=== PATIENT | female | born 1945 | race Caucasian/White ===

== ENCOUNTER → 2021-09-30 14:33 | Outpatient (BNVA) | payer OTHER, SELFPAY | PROVIDERS: PCP Nurse Practitioner; Visit Provider Nurse Practitioner Family ==

== ENCOUNTER → 2021-11-27 13:59 | Outpatient (BNVA) | payer OTHER, SELFPAY | PROVIDERS: PCP Nurse Practitioner; Visit Provider Nurse Practitioner Family ==

== ENCOUNTER → 2022-09-27 15:29 | Outpatient (BNVA) | payer OTHER, SELFPAY | PROVIDERS: PCP Nurse Practitioner; Visit Provider Nurse Practitioner Family | DX: Z13.89 Encounter for screening for other disorder (principal) ==

== ENCOUNTER → 2022-12-27 14:58 | Outpatient (BNVA) | payer OTHER, SELFPAY | PROVIDERS: PCP Nurse Practitioner; Visit Provider Nurse Practitioner Family | DX: Z13.89 Encounter for screening for other disorder (principal) ==

== ENCOUNTER 2023-03-31 12:59 | Outpatient (AMB) | payer OTHER, SELFPAY ==
--- NOTE | 2023-03-31 13:03 | A.OFFVIS_ITS ---
Intake Vital Signs 03/31/23 13:04 Height 5 ft 5 in Weight 141 lb BMI 23.5 BP 108/80 Blood Pressure Location Lt brachial Position Sitting Pulse 63 Pulse Source Pulse Oximeter Pulse Oximetry (%) 96 Oxygen Delivery Method Room Air Intake Visit Reasons: 3m follow up - LVM Intake Note: Pt presents as a 3 month f/u. Pt states doing alright, I broke my hip and had surgery in December. Blood And Plasma Laboratory Assistant Required: No Allergies No Known Allergies Allergy (Verified 03/31/23 13:09) Medication List - Last Reconciled 03/31/23 by KATE Hawkins cholecalciferol (vitamin D3) 25 mcg PO DAILY docusate sodium 100 mg PO BID PRN duloxetine 30 mg PO DAILY flu vacc [id number](65yr up)-PF (Fluzone High-Dose Quad (PF)) mL IM gabapentin 300 mg orally 1 cap qam & 2 caps qhs; in the Morning gabapentin 300 mg PO BID levothyroxine 25 mcg PO DAILY magnesium oxide 400 mg PO BEDTIME 30 days mirtazapine 15 mg PO BEDTIME multivitamin 1 tab PO DAILY ropinirole 0.25 mg PO BID 30 days sennosides (senna) 8.6 mg PO DAILY PRN HPI HPI Comments History of Present Illness Details 77-yr-old female presents for f/u visit. Pt endorses the following interval medical history changes: Pt reports that she had a fall in December and sustained a left hip fracture- now s/p ORIF. She had a rehab stay and then returned home to her dtr's house. She was just cleared by ortho to resume driving and has just returned to her own home about a week ago. While she was at her dtr's house, she did have a [facility] admission x's 1 wk- for management of her depression and ? SI- but pt denies that was ever really had SI. She now has a psychiatrist. Is feeling a bit depressed since returning home- denies SI. Her dtr is trying to help her establish care w/ a therapist. She states her tremor is stable w/ Requip 0.25mg bid. She states her numbness and tingling in her feet and fingers- is stable. She is now walking with a walker- states that she is supposed to use it until ortho fully clears her. She has been noticing a bit more right hip discomfort- ? d/t overuse r/t the left hip fx. Had right hip XR- per pt, showed a small bone spur- was advsied to use lidocaine patch- but this is hard to do on her own. PFSH Surgical History Status post hip surgery Family History Father Alzheimers disease Mother Breast cancer Social History (Updated 03/31/23 @ 13:17 by Brenda Hoffman CMA) Alcohol intake: never Patient Tobacco Use Status: Never used Tobacco Review of Systems Const All systems reviewed & are unremarkable except as noted in HPI and below Physical Exam Vital Signs: Last Vital Signs Pulse 63 03/31/23 13:04 BP 108/80 03/31/23 13:04 Pulse Ox 96 03/31/23 13:04 Oxygen Delivery Method Room Air 03/31/23 13:04 BMI result Body Mass Index 23.5 Const General: cooperative and no acute distress Orientation/consciousness: patient oriented x3 HEENT Head: Yes normocephalic Resp Effort & Inspection: normal respiratory effort and able to speak in complete sentences Neuro Other: Decreased expression but w/ increased blink- a bit more so on left. Left mild finger rest tremor. BUE postural tremor L > R. Mild R > L tone. Slow to stand, short steps, steady with walker General: patient oriented x3 Cognition (Neuro): normal cognition Motor exam (neuro): 5/5 motor strength present throughout Psych Appearance: grossly normal Mental Status: mental status grossly normal Speech and movement: Clear speech present Affect: normal affect Attitude: cooperative Assessment & Plan Assessment & Plan (1) Tremor, unspecified: Comment: w/ s/s PD- but negative MERCED scan. Code(s): R25.1 - Tremor, unspecified (2) RLS (restless legs syndrome): Code(s): G25.81 - Restless legs syndrome (3) Paresthesia and pain of extremity: Comment: BUE & BLE- ? chemo induced Code(s): R20.2 - Paresthesia of skin; M79.609 - Pain in unspecified limb (4) Memory difficulties: Code(s): R41.3 - Other amnesia Plan Concur w/ establishing care w/ therapist and continuing w/ psychiatry. Continue Ropinirole 0.25mg bid- in hopes this helps tremors. Continue Gabapentin 300mg qam and 600mg qhs.- psychiatry recently refilled. Continue Magnesium 400mg qhs. Encouraged pt to use eye gtts as ordered. Continue PT exercises. ? f/u in 4 months or sooner prn Medications: New gabapentin 300 mg orally 1 cap qam & 2 caps qhs; in the Morning Coding Level of Care Code Est Pt Level 4 (58582) Diagnoses Tremor, unspecified R25.1 RLS (restless legs syndrome) G25.81 Paresthesia and pain of extremity R20.2; M79.609 Memory difficulties R41.3
[2023-03-31 13:04] VITALS: BP 108/80; PULSE 63; O2SAT 96; BMI 23.5
== END 2023-03-31 13:47 | disposition home or self-care (01) ==
LOC: HO.HSMS 12:59
PROVIDERS: PCP Nurse Practitioner; Visit Provider Nurse Practitioner Family
DX: R25.1 Tremor, unspecified (principal); G25.81 Restless legs syndrome; R20.2 Paresthesia of skin; R41.3 Other amnesia; M79.604 Pain in right leg; M79.605 Pain in left leg
CPT/HCPCS: 99214

== ENCOUNTER → 2023-03-31 12:59 | Outpatient (BNVA) | payer OTHER, SELFPAY | PROVIDERS: PCP Nurse Practitioner; Visit Provider Nurse Practitioner Family ==

== ENCOUNTER 2023-11-02 13:03 | Outpatient (AMB) | payer OTHER, SELFPAY ==
[2023-11-02 13:06] VITALS: BP 120/78; BMI 27.6
--- NOTE | 2023-11-02 13:06 | MHC.OFFVIS ---
Intake Vital Signs 11/02/23 13:06 Height 5 ft 5 in Weight 166 lb BMI 27.6 BP 120/78 Blood Pressure Location Rt brachial Position Sitting Intake Visit Reasons: 4 mo f/u- Confirmed Intake Note: Patient presents for 4 month follow up. My weight, I dont feel right sometimes I dont know how to explain it Allergies No Known Allergies Allergy (Verified 11/02/23 13:10) HPI HPI Comments History of Present Illness Details 77-yr-old female presents for f/u visit. Pt denies any significant interval medical history changes. Pt has had a slow weight gain, since she recovered from her previous hip fracture. She feels an internal tremor- family has mentioned the tremor is milder. Still have tingling in her hands and feet. Her eyes always feels tired. Had recent eye exam- was advised to use a special eyelid moisturizer. Feels generally tired and weak at times. No muscle cramps. No falls. Has constipation at times- has been better in the last 2 weeks, taking metamucil, prunes, fruit. Has MOM prn- but has not needed to use. Mood- not as good- continues to have worry r/t her family- her dtr recently fell down a flight of stairs. Some nights she sleeps better than others. Pt's current tremor medication regimen: Gabapentin 300mg bid. Ropinirole 0.25mg bid. PFSH Surgical History Status post hip surgery Family History Father Alzheimers disease Mother Breast cancer Social History Alcohol intake: never Patient Tobacco Use Status: Never used Tobacco Review of Systems Const All systems reviewed & are unremarkable except as noted in HPI and below Physical Exam Vital Signs: Last Vital Signs BP 120/78 11/02/23 13:06 BMI result Body Mass Index 27.6 Const General: cooperative and no acute distress Resp Effort & Inspection: normal respiratory effort and able to speak in complete sentences Neuro Other: A&O Decreased expression but w/ increased blink Mild involuntary lisa eyebrow movements. Left mild finger rest tremor. BUE postural tremor L > R. Mild R > L tone. Slow to stand, short steps, steady with walker Assessment & Plan Assessment & Plan (1) Tremor, unspecified: Comment: w/ s/s PD- but negative MERCED scan. Code(s): R25.1 - Tremor, unspecified (2) RLS (restless legs syndrome): Code(s): G25.81 - Restless legs syndrome (3) Paresthesia and pain of extremity: Comment: BUE & BLE- ? chemo induced Code(s): R20.2 - Paresthesia of skin; M79.609 - Pain in unspecified limb Plan F/u w/ therapist and psychiatry. Discussed increasing Ropinirole for tremor- but pt would like to wait for now. Monitor paresthesias and tremor s/s. Continue Ropinirole 0.25mg bid. Continue Gabapentin- managed by psychiatry recently refilled. Continue Magnesium 400mg qhs. Stressed importance of regular, paced physical activity. ? f/u in 6 months or sooner prn Coding Level of Care Code Est Pt Level 4 (60627) Diagnoses Tremor, unspecified R25.1 RLS (restless legs syndrome) G25.81 Paresthesia and pain of extremity R20.2; M79.609
== END 2023-11-02 13:56 | disposition home or self-care (01) ==
PROVIDERS: PCP Nurse Practitioner; Visit Provider Nurse Practitioner Family
DX: R25.1 Tremor, unspecified (principal); G25.81 Restless legs syndrome; R20.2 Paresthesia of skin; M79.609 Pain in unspecified limb
CPT/HCPCS: 99214

== ENCOUNTER → 2023-11-02 13:03 | Outpatient (BNVA) | payer OTHER, SELFPAY | PROVIDERS: PCP Nurse Practitioner; Visit Provider Nurse Practitioner Family ==

== ENCOUNTER 2025-06-11 15:13 | Outpatient (AMB) | payer OTHER, SELFPAY ==
--- OUTSIDE RECORDS SUMMARY | 2025-06-05 11:48 | XMS_ITS | Continuity of Care Document ---
Author Organization [facility] Address [address] [address] Phone Care Team Providers Care Ward Nurse Name Role Phone Michael Dyer NP Unavailable Unavailable Advance Directives Directive Yes / No Effective Date File Name No Information Encounters Encounter Description Practice Location Reason(s) For Visit Diagnoses Date Provider [facility], [address], [id number], [place] tel:[phone] [address] [place] [address] No Information [address] [place], [place], [id number], [place]. tel:[phone] Family History Family Member Type Diagnosis Age At Onset No Information Payers Payer name Insurance type Covered alliance party ID Authoriza tion(s) No Information Social History Type Description Quantity Date Captured Comments Sex Female Smoking Status No Information Chief Complaint And Reason For Visit No Information History Of Present Illness Encounter Date Complaint History Of Prese nt Illness No Information Instructions Date Instruction Additional Infor mation No Information Assessments Type Assessment Date No Information
--- NOTE | 2025-06-11 15:26 | MHC.OFFVIS ---
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 She is presenting with cognitive symptoms including word-finding difficulties. She describes a history of experiencing episodes where she mixes up words during conversations, questioning if these symptoms relate to her existing health issues. The cognitive decline symptoms can be associated with her known diagnosis of Parkinsonism, identified as Progressive Supranuclear Palsy (PSP), which she has managed over an unspecified period. The patient recounts symptoms of shakiness, influenced by stress and nervousness, which she finds aggravating her condition. Despite mild symptomatology of PSP and mild dementia, no significant progression in her condition has been observed. She reports occasional sensations of an odd feeling in her head that she does not attribute to headaches. Her management plan includes medications which have been beneficial, though specifics of the medication are not mentioned during the visit. Concerns about her oxygen levels contribute to her stress. Treatment adherence is noted, and medication renewal is discussed to help manage her symptoms. [facility] Medical History (Updated 06/11/25 @ 15:34 by Fredy Villatoro MD) Blepharospasm Multifactorial gait disorder Peripheral neuropathy PSP (progressive supranuclear palsy) Surgical History Status post hip surgery Family History Father Alzheimers disease Mother Breast cancer Social History Alcohol intake: never Patient Tobacco Use Status: Never used Tobacco Review of Systems Const Details: - Neurological: Reports shaky episodes and word-finding difficulties; denies headaches. - Psychological: Reports stress and nervousness that exacerbate symptoms. Physical Exam Neuro Other: She is alert and awake with normal spontaneity of speech fluency comprehension and anxious affect. She has blinking frequently. She is walking with a walker. Mild bilateral hand tremor are noted. Assessment & Plan Assessment & Plan (1) PSP (progressive supranuclear palsy): Code(s): G23.1 - Progressive supranuclear ophthalmoplegia [[id number]] Category: Medical (2) Multifactorial gait disorder: Code(s): R26.89 - Other abnormalities of gait and mobility Category: Medical (3) Peripheral neuropathy: Code(s): G62.9 - Polyneuropathy, unspecified Category: Medical Qualifiers: Peripheral neuropathy type: polyneuropathy, unspecified Qualified Code(s): G62.9 - Polyneuropathy, unspecified (4) Blepharospasm: Code(s): G24.5 - Blepharospasm Category: Medical (5) Dementia: Code(s): F03.90 - Unspecified dementia, unspecified severity, without behavioral disturbance, psychotic disturbance, mood disturbance, and anxiety Category: Medical Qualifiers: Dementia type: Parkinson's disease Dementia severity: mild Dementia behavioral or psychological symptom: with anxiety Qualified Code(s): G20.A1 - Parkinson's disease without dyskinesia, without mention of fluctuations; F02.A4 - Dementia in other diseases classified elsewhere, mild, with anxiety Plan During the visit, I discussed the patient's symptoms of shakiness and cognitive decline related to Parkinsonism and dementia. The patient acknowledges stress and nervousness as factors worsening her symptoms. We reviewed the importance of continuing her current medication regimen, which effectively manages her condition. Prescription renewals were confirmed. I reassured the patient about the non-progressive nature of her condition at this stage and underscored the value of regular monitoring. Recommendations for stress reduction as an adjunctive management strategy were suggested, reinforcing the importance of a balanced lifestyle to aid in symptom relief. 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
--- OUTSIDE RECORDS SUMMARY | 2025-06-11 18:10 | XMS_ITS | Clinical Summary ---
Author Organization [facility] Address [address] [id number] Care Team Providers Care Director Global Medical Affairs Name Role Phone Geo Mendoza MD Primary Care Provider [phone] Allergies No known active allergies Medications Medication Sig Dispensed Refills Start Date End Date Status clonazePAM (KLONOPIN) 1 MG tablet Take 1 mg by mouth 2 (two) times a day as needed for anxiety. 0 Active hydrochlorothiazide (HYDRODIURIL) tablet 25 mg Take 25 mg by mouth daily. 0 Active gabapentin (NEURONTIN) 400 MG capsule Take 600 mg by mouth daily. 1 1/2 pill qhs 0 Active Calcium Carbonate-Vit D-Min (CALCIUM 1200 PO) Take 600 mg by mouth. 2 pills daily 0 Active AMLODIPINE BESYLATE 2.5 MG PO TABS Take 2.5 mg by mouth daily. 0 Active Cholecalciferol (VITAMIN D) 1000 units tablet Take 1 tablet (1,000 Units total) by mouth daily. 90 tablet 0 04/17/2019 Active vitamin B-12 (CYANOCOBALAMIN) 100 MCG tablet Take 50 mcg by mouth daily. 0 Active DULoxetine (CYMBALTA) DR capsule 20 mg 0 10/16/2020 Active EQ FIBER THERAPY 500 MG TABS Take 1 tablet by mouth 2 (two) times a day. 0 09/17/2020 Active senna (Senna Lax) 8.6 MG tablet Take 8.6 mg by mouth. 0 08/29/2020 Active carbidopa-levodopa (SINEMET) 25-100 MG per tablet TAKE 1 TABLET BY MOUTH THREE TIMES DAILY TAKE WITH A CRACKER AT LEAST 30 MINUTES BEFORE MEALS PROTEIN INTAKE 0 04/30/2021 Active citalopram (CeleXA) 10 MG tablet TAKE 1 TABLET BY MOUTH ONCE DAILY IN THE MORNING 0 05/18/2021 Active Active Problems Problem Noted Date Diagnosed Date Primary cancer of left lower lobe of lung 2023 Thoracic aortic aneurysm without rupture 021 Parkinson's disease 05/22/2021 Hyponatremia 05/22/2021 Weight loss 11/10/2020 Colitis 06/19/2019 Neuropathy due to chemotherapeutic drug 02/24/20 Rash, skin 09/07/2017 Constipation 08/24/2017 Gastroesophageal reflux disease 08/24/2017 Essential hypertension 03/08/2017 Anxiety 03/08/2017 Malignant neoplasm of ascending colon 08/06/2016 Cancer Staging:Clinical stage from 08/04/2016:Stage IIIB(T3, N2a, M0) - Signed by Rianna Ross MD on 03/05/2017 Pathologic: Signed by Rianna Ross MD on 03/05/2017 Thrombocytopenia Anemia in neoplastic disease Resolved Problems Problem Noted Date Diagnosed Date Resolved Date Malignant neoplasm of transverse colon 12/19/2018 Family History Medical History Relation Name Comments Cancer Mother breast cancer Relation Name Status Comments Mother Social History Tobacco Use Types Packs/Day Years Used Date Smoking Tobacco: Never Smokeless Tobacco: Never Alcohol Use Standard Drinks/Week Comments No 0 (1 standard drink = 0.6 oz pur e alcohol) Sex and Gender Information Value Date Recorded Sex Assigned at Not on file Gender Identity Not on file Sexual Orientation Not on file Job Start Date Occupation Industry Not on file Not on file Not on file Last Filed Vital Signs Vital Sign Reading Time Taken Comments Blood Pressure 129/76 04/25/2024 12:01 PM EDT Pulse 67 04/25/2024 12:01 PM EDT Temperature 36.3 C (97.3 F) 04/25/2024 12:01 PM EDT Respiratory Rate - - Oxygen Saturation 99% 04/25/2024 12: 01 PM EDT Inhaled Oxygen Concentration - - Weight 72.9 kg (160 lb 12.8 oz) 024 12:01 PM EDT Height 165.1 cm (5' 5 ) 08/21/2021 2:48 PM EST Body Mass Index 26.76 08/21/2021 2:48 PM EST Plan of Treatment Health Maintenance Due Date Last Done Comments Hepatitis C Screening 1945 COVID-19 Vaccine (#1) 1952 Depression Screening 1959 Preventative Health Evaluation 1965 Shingrix-Zoster Vaccine (1 of 2) 1966 Fall Risk Assessment 2012 Osteoporosis Screening (DEXA Scan) 2012 RSV Adult > 60+ Yrs or (1 - 1-dose 75+ series) 2022 Influenza Vaccine (#1) 2025 3, 06/08/2020, 06/18/2019, Additional history exists DTap / Tdap / Td (3 - Td or Tdap) 12/31/2032 12/31/2022, 03/19/2011 Pneumococcal Vaccine Completed 02/11/2016, 08/09/20 13 Hepatitis B Vaccines Aged Out No long er eligible based on patient's age to complete this topic RSV Ped < 20 months Aged Out No longe r eligible based on patient's age to complete this topic Care Teams Director Global Medical Affairs Relationship Specialty Start Date End Date Geo Mendoza MD [address] [facility] [address] [place] [address] PCP - General Internal Medicine 04/25/24
--- OUTSIDE RECORDS SUMMARY | 2025-06-11 18:10 | XMS_ITS ---
Author Name [facility] Organization Unknown Care Team Organization Name Specialty Phone Email Start Date End Da te [facility] TERESA CRONIN Primary Care [email or web address] 02/25/2023 4 [facility] Primary [facility] 01/24/2023 4
--- OUTSIDE RECORDS SUMMARY | 2025-06-11 18:11 | XMS_ITS | Encounter Summary ---
Author Organization [facility] Address [address] [place] [address] Care Team Providers Care Pediatric Speech Therapist Name Role Phone Geo Mendoza MD Primary Care Provider [phone] Encounter Details Date Type Department Care Team Description 04/20/2023 Social Work [facility] [address] [place] [address] Андрей Boateng, [facility] [place] Social History Tobacco Use Types Packs/Day Years [...] file Not on file Not on file documented as of this encounter Plan of Treatment Not on file documented as of this encounter Visit Diagnoses Not on filedocumented in this encounter Care Teams Pediatric Speech Therapist Relationship Specialty Start Date End Date Geo Mendoza MD [address] [address] PCP - General Internal Medicine 04/25/24 documented as of this encounter
--- OUTSIDE RECORDS SUMMARY | 2025-06-11 18:11 | XMS_ITS | Clinical Summary ---
Author Organization [facility] Address [address] [place] [address] Phone Care Team Providers Care Manufacturing Lab Technician Name Role Phone Beltran Mendoza MD Primary Care Provider Allergies No known active allergies Medications carbidopa-levod opa (SINEMET) 25-100 mg per tablet Take 1 tablet by mouth 2 (two) times a day. 1 Active cholecalciferol (VITAMIN D-3) 25 mcg (1,000 unit) tablet Take 1 tablet (1,000 Units total) by mouth daily. 9 Active calcium carb/vit D3/minerals (CALCIUM CARBONATE-VIT D3-MIN ORAL) 1 tablet 1 (one) time each day. Active busPIRone (BUSPAR) 5 mg tablet Take 1 tablet (5 mg total) by mouth 3 (three) times a day. 5 Active rOPINIRole (REQUIP) 0.25 mg tablet Take 1 tablet (0.25 mg total) by mouth 3 (three) times a day. Active LACTOFERRIN ORAL Take by mouth if needed. Active Oxygen Therapy (O2) gas Inhale 3 L. With activity Active ascorbic acid (VITAMIN C) 500 mg tablet Take 1 tablet (500 mg total) by mouth 1 (one) time each day. 360 each 5 03/14/20 26 Active psyllium (METAMUCIL) 0.52 gram capsule Take 1 capsule (520 mg total) by mouth 1 (one) time each day. 30 capsule 11 5 03/14/20 26 Active bisacodyL (DULCOLAX) 5 mg EC tablet Take 2 tablets by mouth right before beginning bowel prep. See instructions provided by the office 2 tablet 5 Active atorvastatin (LIPITOR) 10 mg tablet Take 1 tablet (10 mg total) by mouth 1 (one) time each day. 90 tablet 5 Active levothyroxine (SYNTHROID, LEVOTHROID) 25 mcg tablet Take 1 tablet (25 mcg total) by mouth 1 (one) time each day. 90 tablet 5 Active gabapentin (NEURONTIN) 400 mg capsule Take 1 capsule (400 mg total) by mouth at bedtime. 90 each 5 08/08/20 25 Active DULoxetine (CYMBALTA) [address] capsule Take 1 capsule (20 mg total) by mouth 1 (one) time each day. Do not crush or chew. Active ciclopirox (PENLAC) 8 % solutionIndicat ions:Onychomyco sis Apply topically at bedtime. Apply over nail and surrounding skin. Apply daily over previous coat. After seven (7) days, may remove with alcohol and continue cycle. 6.6 mL 1 5 08/08/20 25 Active traZODone (DESYREL) 50 mg tablet Take 1 tablet (50 mg total) by mouth at bedtime. Active ipratropium-alb uteroL (Combivent Respimat) 20-100 mcg/actuation inhaler Inhale 1 puff by mouth 4 (four) times a day. 3 each 3 5 05/17/20 Active Active Problems Problem Noted Date Diagnosed Date Neuropathy 05/10/2025 Depression 04/23/2025 Osteoarthritis of cervical spine 04/23/2025 Ascending aorta dilatation (CMS/HCC V24) 025 CERVANTES (dyspnea on exertion) 03/01/2025 Assessment & Plan (03/05/2025 5:10 PM EDT): Patient is having some dyspnea exertion does have grade 2 diastolic dysfunction blood pressure is well-controlled I explained to them what diastolic dysfunction is how it can be secondary to hypertension. At this point there is no evidence that this level of diastolic dysfunction is causing any symptoms. And her blood pressure is not stable enough for me to add any additional afterload. I also spoke to them about the fact that she is on medical therapy that can cause orthostasis and if she is a former Parkinson's disease that can cause orthostasis. We talked about the signs and symptoms that would be indicative of progressive diastolic dysfunction mainly ascites and peripheral edema which she has none. We also discussed the signs and symptoms of orthostasis should they develop and how we would take care of it by addressing it with medical management. At this point I do not see need for any further cardiac evaluation at this time but welcomed him back should they develop any progressive symptoms Orders: Ambulatory referral to Cardiology Diastolic dysfunction 03/01/2025 Overview (03/01/2025): GRADE 2 History of lung cancer 02/15/2025 Assessment & Plan (02/15/2025 2:14 PM EDT): Ms. Asencio is a 79-year-old female who had a left lower lobe segmentectomy in November 2023 for a stage Ia pulmonary adenocarcinoma. The patient's most recent surveillance chest CT scan done in January 2025 shows no new or worsening pulmonary nodule, or thoracic adenopathy, to suggest recurrence or new disease. We will continue with routine chest CT surveillance the next of which would be in 6 months, July 2025. The patient will have a visit in the office afterwards as part of her protocol. Hyperlipidemia 01/15/2025 Hypothyroidism 01/15/2025 Weakness 12/05/2024 Acute cystitis without hematuria 12/05/2024 Anemia in neoplastic disease 06/13/2024 Thrombocytopenia (CMS/HCC V24) 06/13/2024 Thoracic aortic aneurysm without rupture (CMS/HC C V24) 08/21/2021 Overview (06/13/2024): Evaluated by [facility] Cardiac Surgery 11/11/21 4.2 cm ascending aortic aneurysm Advised repeat in 6 months and if stable 1 year Hyponatremia 05/22/2021 Parkinson's disease (CMS/HCC V24, CMS/HCC V28) 0 05/22/2021 Weight loss 11/10/2020 Colitis 06/19/2019 Neuropathy due to chemotherapeutic drug ([facility] V24) 02/23/2018 Rash, skin 09/07/2017 Chronic constipation 08/24/2017 Gastroesophageal reflux disease 08/24/2017 Anxiety 03/08/2017 Essential hypertension 03/08/2017 Malignant neoplasm of ascend ing colon ([facility] V24, [facility] V28) 08/06/2016 Resolved Problems Problem Noted Date Diagnosed Date Resolved Date Primary cancer of left lower lobe of lung ([facility] V24, [facility] V28) 06/13/2024 02/15/2025 Encounters Date Type Department Care Team Description 05/30/2025 11:15 AM EDT Telemedicine Vascular Surgery - [place] [address] [place] [phone] Ambrocio Yang MD Ascending aorta dilatation ([facility] V24) (Primary Dx) 05/17/2025 3:45 PM EDT Office Visit Pulmonology - [place] [address] [place] [phone] Yoanna Kumar MD Apnea (Primary Dx); Chronic obstructive pulmonary disease, unspecified COPD type ([facility] V24, [facility] V28); Malignant neoplasm of lower lobe of left lung ([facility] V24, [facility] V28); Dyspnea, unspecified type 05/11/2025 Telephone Walk-In Clinic - [address] [phone] José Santillan 05/10/2025 3:12 PM EDT - 05/10/2025 11:59 PM EDT Hospital Encounter CT Scan - [address] [phone] Aneurysm of the ascending aorta, without rupture ([facility] V24) Discharge Disposition: Home or Self Care 05/10/2025 2:00 PM EDT Office Visit Adult Medicine [address] [phone] Beltran Mendoza MD Hypothyroidism, unspecified type (Primary Dx); Hyperlipidemia, unspecified hyperlipidemia type; Neuropathy; Screening-pulmonary TB; Parkinson's disease, unspecified whether dyskinesia present, unspecified whether manifestations fluctuate (CMS/HCC V24, CMS/HCC V28); Anxiety and depression; Onychomycosis 05/08/2025 4:45 PM EDT Office Visit Walk-In Clinic - [address] [phone] Griffin Webb NP Lower urinary tract symptoms (Primary Dx) 04/23/2025 2:00 PM EDT Office Visit [address] [phone] Beltran Mendoza MD Encounter for subsequent annual wellness visit (AWV) in Medicare patient (Primary Dx); Routine general medical examination at a health care facility; Depression, unspecified depression type; Hyperlipidemia, unspecified hyperlipidemia type; Parkinson's disease, unspecified whether dyskinesia present, unspecified whether manifestations fluctuate (CMS/HCC V24, CMS/HCC V28); Anxiety; Hypothyroidism, unspecified type; Osteoarthritis of cervical spine, unspecified spinal osteoarthritis complication status 04/12/2025 Telephone Gastroenterology - [place] [facility] [address] [facility] [address] [place] [address] Ashanti Malcolm DO 04/08/2025 2:59 PM EDT Anesthesia Event [facility] [address] [place] [phone] Delmer Schwarz MD Chang, Daniel J, MD 04/08/2025 2:35 PM EDT - 04/08/2025 11:59 PM EDT Hospital Encounter [facility] [address] [place] [phone] Ashanti Malcolm DO Gomes, Sheldon B, MD Hayes, Brett L, MAYA Chronic constipation; History of adenomatous polyp of colon Discharge Disposition: Home or Self Care 04/02/2025 1:00 PM EDT Office Visit [address] [phone] Beltran Mendoza MD Osteoarthritis of cervical spine, unspecified spinal osteoarthritis complication status (Primary Dx); Chronic constipation; Primary hypertension; Parkinson's disease, unspecified whether dyskinesia present, unspecified whether manifestations fluctuate (CMS/HCC V24, CMS/HCC V28) 04/01/2025 Telephone Adult Medicine [address] [phone] Beltran Mendoza MD 03/29/2025 Telephone Adult [address] [phone] Beltran Mendoza MD 03/28/2025 3:18 PM EDT - 03/28/2025 7:36 PM EDT Emergency [facility] [address] [place] [phone] Jeffery Franklin MD Closed head injury, initial encounter (Primary Dx); Fall, initial encounter Discharge Disposition: Home or Self Care 03/28/2025 Telephone [facility] - [address] [place] [phone] Colby Schroeder MD 03/27/2025 Telephone Adult [address] [phone] Malia Jimenez [place] 03/27/2025 Telephone Pulmonology - [place] [address] [facility] [address] [place] [phone] Sulema Salas NP 03/26/2025 3:30 PM EDT Office Visit Adult [address] [phone] Beltran Mendoza MD Chronic constipation (Primary Dx); Ascending aorta dilatation (CMS/HCC V24); Parkinson's disease, unspecified whether dyskinesia present, unspecified whether manifestations fluctuate (CMS/HCC V24, CMS/HCC V28); Diastolic dysfunction; Other fatigue; Elevated blood pressure reading 03/25/2025 Telephone Adult Medicine [address] [phone] Beltran Mendoza MD 03/22/2025 4:17 PM EDT - 03/22/2025 9:09 PM EDT Emergency [facility] [address] [place] [phone] Ajay Perales MD Abdominal pain, unspecified abdominal location (Primary Dx); Constipation, unspecified constipation type Discharge Disposition: Home or Self Care 03/16/2025 1:45 PM EDT Office Visit Walk-In Clinic - [address] [phone] Jaycob Sepulveda PA Acute cystitis with hematuria (Primary Dx) 03/15/2025 Telephone Gastroenterology [facility] [address] [phone] Lidia Barahona MD 03/15/2025 Telephone Pulmonology - [place] [address] [phone] Yoanna Kumar MD 03/15/2025 Telephone Gastroenterology [facility] [address] [phone] Nisha Arguello [place] 03/14/2025 4:30 PM EDT Office Visit Adult [address] [phone] Beltran Mendoza MD Parkinson's disease, unspecified whether dyskinesia present, unspecified whether manifestations fluctuate (CMS/HCC V24, CMS/HCC V28) (Primary Dx); Neuropathy due to chemotherapeutic drug (CMS/HCC V24); Hyperlipidemia, unspecified hyperlipidemia type; Ascending aorta dilatation (CMS/HCC V24); Aneurysm of sinus of Valsalva; Chronic constipation; SOB (shortness of breath); On home oxygen therapy from Last 3 Months Surgical History Surgery Date Site/Laterality Comments PORTACATH PLACEMENT PROCEDURE:PORTACATH PLACEMENT COLONOSCOPY PROCEDURE:COLONOSCOPY COLONOSCOPY 04/22/2006 PROCEDURE: HISTORICAL COLONOSCOPY; COMMENT: Dr Mcelroy - negative OTHER SURGICAL HISTORY 06/25/2016 PROCEDURE: COLON CA SCRN NOT HI RSK IND; COMMENT: Adenocarcinoma. absent MLH1 and PMS2; multiple serrated polyp/adenomas; repeat in 1 year if no mets, under propofol. COLONOSCOPY 06/21/17 Hanny PROCEDURE: VA COLONOSCOPY STOMA W/RMVL ROSALINA POLYP/OTH LES SNARE; COMMENT: three sessile serrated adenomas and hyperplastic polyp; hemorrhoids. Repeat under propofol in 2 yrs OTHER SURGICAL HISTORY PROCEDURE: VA CHEMOTX ADMN PERTL CAVITY IMPLANTED PORT/CATH OTHER SURGICAL HISTORY 2015 PROCEDURE: VA COLONOSCOPY FLX W/ENDOSCOPIC MUCOSAL RESECTION CATARACT EXTRACTION PROCEDURE: HISTORICAL CATARACT REMOVAL HIP ARTHROPLASTY 12/2022 Left PROCEDURE: HISTORICAL HIP REPLACEMENT OTHER SURGICAL HISTORY 12/16/2023 Left PROCEDURE: VA THORACOSCOPY W/LOBECTOMY SINGLE LOBE; COMMENT: LLL Lobectomy Medical History Medical History Date Comments Malignant neoplasm of transv erse colon (CMS/HCC V24, CMS/HCC V28) DX:Malignant neoplasm of tr ansverse colon (HCC) Anemia in neoplastic disease DX: Anemia in neoplastic disease Chronic idiopathic neutropen ia (CMS/HCC V24) DX:Chronic idiopathic neutro penia (HCC) Thrombocytopenia, unspecifie d (CMS/HCC V24) DX:Thrombocytopenia, unspeci fied (HCC) Malignant neoplasm of transv erse colon (CMS/HCC V24, CMS/HCC V28) DX:Malignant neoplasm of tr ansverse colon (HCC) Trace cataracts 01/14/2014 DX:Trace catarac ts; COMMENT: Dr Santacruz note 07/31/13 Somatic delusion (CMS/HCC V2 4, CMS/HCC V28) 06/11/2009 DX:Somatic delusion (HCC) Overweight(278.02) 03/03/2006 DX:Overweight (278.02) Disorder of bone and cartila ge, unspecified 05/26/2007 DX:Disorder of bone and cart ilage, unspecified Unspecified essential hypertension 03/03/2006 DX:Unspecified essential hypertension Esophageal reflux 03/03/2006 DX:Esophageal reflux Depression 03/03/2006 DX:Depression Migraine without aura, witho ut mention of intractable migraine without mention of status migrainosus 03/03/2006 DX:Migraine without aura , without mention of intractable migraine without mention of status migrainosus Anxiety 06/11/2009 DX:Anxiety Malignant neoplasm of ascend ing colon (CMS/HCC V24, CMS/HCC V28) 07/15/2016 DX:Malignant neoplasm of as cending colon (HCC) Change in bowel habits DX:Change in bowel habits Obstipation DX:Obstipation; COMMENT: Needed disimpaction at ER due to obstipation Urinary retention DX:Urinary ret ention Dehydration DX:Dehydration Constipation DX:Constipation Weight loss DX:Weight loss IBS (irritable bowel syndrome) D X:IBS (irritable bowel syndrome) History of colon cancer 07/15/2016 DX:Histo ry of colon cancer; COMMENT: Adenocarcinoma, s/p resection of right colon 07/2016-Dr Merino Weight loss DX:Weight loss Mild mitral regurgitation 02/20/2021 DX:Mil d mitral regurgitation; COMMENT: ECHO 02/17/21 EF >70% Postural tremor 03/13/2021 DX:Postural trem or Hyperlipidemia 05/23/2008 DX:Hyperlipidemi a Neuropathy DX:Neuropathy; C OMMENT: bilateral hands and feet Tubular adenoma of colon DX:Tubu lar adenoma of colon Aortic aneurysm ([facility] V24) DX :Aortic aneurysm (HCC) Osteoporosis DX:Osteoporosis Constipation DX:Constipation History of colon cancer DX:Histo ry of colon cancer History of hip replacement DX:Hi story of hip replacement Femur fracture ([facility]/HCC V24, CMS/HCC V28) DX:Femur fracture (HCC) Lung nodule DX:Lung nodule Esophageal thickening DX:Esophag eal thickening Heartburn DX:Heartburn Parkinson's disease (CMS/HCC V24, CMS/HCC V28) Primary cancer of left lower lobe of lung (CMS/HCC V24, CMS/HCC V28) 06/13/2024 Acute cystitis without hematuria Family History Medical History Relation Name Comments Heart attack Brother 1 Other: other Brother 1 anxiety an stre ss Other: Other Brother 2 Diabetes Daughter Hypertension Daughter Mental illness Daughter Other: Other Daughter Alzheimer's disease Father Other cancer Father Skin Cancer Alzheimer's disease Mother dx'd early 70s Breast cancer Mother dx'd early 70s Mental illness Mother dx'd early 70s Lung cancer Sister Other: Other Sister Skin Cancer Relation Name Status Comments Brother 1 Alive Brother 2 Alive Daughter Father Mother dx'd early 70s Sister Social History Tobacco Use Types Packs/Day Years Used Date Smoking Tobacco: Never Passive Smoke Exposure: Never Smokeless Tobacco: Never Tobacco Cessation:Counseling Given: Not Answered Alcohol Use Standard Drinks/Week Comments No 0 (1 standard drink = 0.6 oz pur e alcohol) Interpersonal Safety Answer Date Record ed Physical Abuse 04/08/2025 Verbal Abuse 04/08/2025 Comments No Sex and Gender Information Value Date Recorded Sex Assigned at Female 12/05/2024 1:22 AM EDT Legal Sex Female 3:27 AM EST Gender Identity Female 12/05/2024 1:22 AM EDT Sexual Orientation Choose not to disclose 2024 1:22 AM EDT Obstetrics History Para Term AB IAB SAB Ectopic Multiple Livin g Live Births 2 2 2 2 Date Outcome GA Total Labor Labor/2nd/3rd Weight Sex Type Anes PTL Tessa A1 A5 Name Clin Term Term Last Filed Vital Signs Vital Sign Reading Time Taken Comments Blood Pressure 118/68 05/17/2025 4:01 PM EDT Pulse 70 05/17/2025 4:01 PM EDT Temperature 36.4 C (97.6 F) 05/17/2025 4:01 PM EDT Respiratory Rate 14 05/10/2025 1:51 PM EDT Oxygen Saturation 96% 05/17/2025 4:01 PM EDT Inhaled Oxygen Concentration - - Weight 76.6 kg (168 lb 12.8 oz) 05/17/2025 4:01 PM EDT Height 165.1 cm (5' 5 ) 05/17/2025 4:01 PM EDT Body Mass Index 28.09 05/17/2025 4:01 PM EDT Plan of Treatment Upcoming Encounters Date Type Department Care Team (Late st Contact Info) Description 06/25/2025 11:30 AM EDT Office Visit [facility] On[facility] [address] [place] [phone] Rianna Horvath MD [address] [place] [phone] 06/27/2025 2:30 PM EDT Office Visit Pulmonology - [place] [address] [facility] [address] [place] [phone] Yoanna Kumar MD [address] [address] 07/12/2025 12:00 PM EDT Appointment [facility] [address] [place] [phone] Ashanti Malcolm, [address] [facility] [address] [place] [address] 10/24/2025 4:30 PM EST Office Visit Adult [address] [phone] Beltran Mendoza MD [address] [place] [address] 12/31/2025 4:20 PM EDT Appointment Radiology Department - [address] [phone] 04/25/2026 2:00 PM EDT Office Visit [address] [phone] Beltran Mendoza MD [address] [place] [address] Health Maintenance Due Date Last Done Comments Influenza Vaccine (#1) 2025 , 05/30/2023, 06/08/2020, Additional history exists Hepatitis C Screening 09/19/2025 Postpo aide from 08/26/2022 (Patient Refused) Hypertension/CHF/CAD Annual BMP Blood Test 03/26/2026 03/26/2025, 03/22/2025, 01/08/2025, Additional history exists Falls Risk Assessment 04/23/2026 04/23/2025, 025 Medicare Annual Wellness Visit 04/23/2026 04/23/2025 Social Influencers of Health Screening 04/23/2026 04/23/2025 Colorectal Cancer Screening: Colonoscopy 04/08/2030 04/08/2025 Cholesterol Screening (Lipid Panel) 05/10/2030 05/10/2025, 03/26/2025, 11/30/2024 Osteoporosis Screening (Bone Density Screening) 10/29/2031 10/29/2021, 05/07/2019 DTaP,Tdap,and Td Vaccines (6 - Td or Tdap) 12/31/2032 12/31/2022, 12/09/2021, 12/09/2021, Additional history exists Pneumococcal Vaccine: 50+ Years Completed 02/11/2016, 08/09/2013 RSV Immunization Adult Patients Completed 08/24/2023 Breast Cancer Screening Discontinued 12/26/19, 08/03/2023, 07/08/2022, Additional history exists COVID-19 Vaccine Completed 02/28/2025, , 07/05/2023, Additional history exists Zoster Vaccines Completed 02/28/2025, 12/07/2024 Depression Screening Completed 04/23/2025 HIB Vaccines Aged Out No longer eligi ble based on patient's age to complete this topic HPV Vaccines Aged Out No longer eligi ble based on patient's age to complete this topic Hepatitis A Vaccines Aged Out No long er eligible based on patient's age to complete this topic Hepatitis B Vaccines Aged Out No long er eligible based on patient's age to complete this topic IPV Vaccines Aged Out No longer eligi ble based on patient's age to complete this topic MMR Vaccines Aged Out No longer eligi ble based on patient's age to complete this topic Meningococcal ACWY Vaccine Aged Out N o longer eligible based on patient's age to complete this topic Meningococcal B Vaccine Aged Out No l onger eligible based on patient's age to complete this topic RSV Immunization Patients Under 20 months Aged Out No longer eligible based on patient's age to complete this topic Varicella Vaccines Aged Out No longer eligible based on patient's age to complete this topic Procedures Procedure Name Priority Date/Time Associated Diagnosis Comments CT CHEST WO CONTRAST Routine 05/10/2025 3:24 PM EDT Aneurysm of the ascending aorta, without rupture (CMS/HCC V24) INTERFERON GAMMA INTERPRETATION Routine 05/10/2025 3:08 PM EDT Screening-pulmonary TB INTERFERON GAMMA ANTIGEN 2 Routine 05/10/2025 3:08 PM EDT Screening-pulmonary TB INTERFERON GAMMA ANTIGEN 1 Routine 05/10/2025 3:08 PM EDT Screening-pulmonary TB INTERFERON GAMMA MITOGEN Routine 05/10/2025 3:08 PM EDT Screening-pulmonary TB INTERFERON GAMMA NIL Routine 05/10/2025 3:08 PM EDT Screening-pulmonary TB LIPID PANEL WITH REFLEX TO DIRECT LDL Routine 05/10/2025 3:08 PM EDT Encounter for subsequent annual wellness visit (AWV) in Medicare patient Hyperlipidemia, unspecified hyperlipidemia type INTERFERON GAMMA FOR TB, QUALITATIVE Routine 05/10/2025 3:08 PM EDT Screening-pulmonary TB URINALYSIS MICROSCOPIC ONLY Routine 05/09/2025 3:46 PM EDT Lower urinary tract symptoms URINALYSIS MICROSCOPIC ONLY Routine 05/09/2025 3:46 PM EDT Lower urinary tract symptoms CULTURE URINE Routine 05/09/2025 3:46 PM EDT Lower urinary tract symptoms COLONOSCOPY Routine 04/08/2025 3:28 PM EDT Chronic constipation History of adenomatous polyp of colon TISSUE EXAM Routine 04/08/2025 3:18 PM EDT Chronic constipation History of adenomatous polyp of colon SODIUM Routine 04/01/2025 4:[address] HEAD WO CONTRAST STAT 03/28/2025 4 [address] CERVICAL SPINE WO CONTRAST STAT 03/28/2025 4:42 PM EDT CBC WITH AUTO DIFFERENTIAL Routine 03/26/2025 4:43 PM EDT Other fatigue LIPID PANEL WITH REFLEX TO DIRECT LDL Routine 03/26/2025 4:43 PM EDT Hyperlipidemia, unspecified hyperlipidemia type BASIC METABOLIC PANEL Routine 03/26/2025 4:43 PM EDT Chronic constipation CBC AND DIFFERENTIAL Routine 03/26/2025 4:43 PM EDT Other fatigue THYROID STIMULATING HORMONE WITH REFLEX TO FREE T4 AND FREE T3 Routine 03/26/2025 4:43 PM EDT Other fatigue ECG ANNOTATED 03/25/2025 CT ABDOMEN PELVIS W CONTRAST STAT 03/22/2025 7:09 PM EDT ECG 12-LEAD STAT 03/22/2025 5:43 PM EDT TROPONIN I HIGH SENSITIVITY STAT 03/22/2025 5:27 PM EDT XR CHEST 2 VIEWS STAT 03/22/2025 4:31 PM EDT PALACIOS URINE CULTURE TUBE STAT 03/22/2025 4:00 PM EDT URINALYSIS WITH REFLEX MICROSCOPIC AND CULTURE STAT 03/22/2025 4:00 PM EDT URINALYSIS WITH REFLEX MICROSCOPIC AND CULTURE STAT 03/22/2025 4:00 PM EDT CBC WITH AUTO DIFFERENTIAL STAT 03/22/2025 3:47 PM EDT B-TYPE NATRIURETIC PEPTIDE STAT 03/22/2025 3:47 PM EDT MAGNESIUM STAT 03/22/2025 3:47 PM EDT LIPASE STAT 03/22/2025 3:47 PM EDT COMPREHENSIVE METABOLIC PANEL STAT 03/22/2025 3:47 PM EDT CBC AND DIFFERENTIAL STAT 03/22/2025 3:47 PM EDT TROPONIN I HIGH SENSITIVITY STAT 03/22/2025 3:47 PM EDT ECG 12-LEAD STAT 03/22/2025 3:46 PM EDT POC URINE NON-AUTO W/O MICRO Routine 03/16/2025 4:09 PM EDT Acute cystitis with hematuria URINALYSIS MICROSCOPIC ONLY Routine 03/16/2025 2:29 PM EDT Acute cystitis with hematuria URINALYSIS MICROSCOPIC ONLY Routine 03/16/2025 2:29 PM EDT Acute cystitis with hematuria CULTURE URINE Routine 03/16/2025 2:29 PM EDT Acute cystitis with hematuria MG MAMMO DIGITAL SCREENING W PJ BILAT Routine 12/25/2024 4:40 PM EDT Encounter for screening mammogram for breast cancer DXA BONE DENSITY STUDY 1+ SITS AXIAL SKEL Routine 10/29/2021 3:36 PM EST Disorder of bone, unspecified Disorder of cartilage, unspecified from Last 3 Months or Most Recently Relevant to Health Maintenance Results * CT Chest wo Contrast (05/10/2025 3:24 PM EDT) Anatomical Region Laterality Modality Body Computed Tomogra phy 05/10/2025 4:23 PM EDT Impressions 05/10/2025 4:39 PM EDT 1. Thoracic aortic aneurysm is grossly stable. 2. A few small scattered pulmonary nodules grossly stable -------- FINAL REPORT -------- Dictated By: Wayne Morin Dictated Date: 05/10/2025 16:23 ET Assigned Physician: Wayne Morin Reviewed and Electronically Signed By: Wanye Morin Signed Date: 05/10/2025 16:39 ET Workstation ID: [id number] Transcribed By: Self Edit Transcribed Date: 05/10/2025 16:23 ET Narrative 05/10/2025 4:[address] CHEST HISTORY: Aortic disease, nontraumatic. TECHNIQUE: Chest CT was performed utilizing contiguous noncontrasted axial images from the thoracic inlet to below the diaphragm. The images were reformatted in the coronal and sagittal planes. Radiation dosage is 10.18mGy COMPARISON: CT chest from 02/06/2025, CT chest from 10/24/2023 and 06/22/2023 FINDINGS: Base of neck: The thyroid and base of the neck are within normal limits. Mediastinum: The heart is normal in size, no pericardial effusion. Mild atherosclerosis of the thoracic aorta. Subcentimeter lymph nodes within the mediastinal stations. Thoracic aortic measurements as follows: Aorta at the right pulmonary artery-4.4 cm, aortic arch-2.9 cm, aorta at the sinuses of Valsalva- 3.5 cm, aorta at the sinotubular junction-3.3 cm. Lungs: Evaluation of the lung parenchyma demonstrates apical pleural-parenchymal scarring. No focal consolidation or effusion. 4 mm solid nodule along the right fissure (series 2, image 214). 3 mm solid nodule within the left upper lobe (series 2, image 200). Postoperative changes of the left lower lung zone. Mucous inspissation within the left upper lobe. Ground glass attenuation and mild patchy consolidation within the right lower lobe The trachea and mainstem bronchi are patent. Upper Abdomen: Limited visualization of the extreme upper abdomen demonstrates elevation of the right hemidiaphragm. Mild thickening of the right adrenal gland. MSK: Soft tissues are normal. Moderate degenerative changes of thoracic spine. Procedure Note Wayne Morin MD - 05/10/2025 CT CHEST HISTORY: Aortic disease, nontraumatic. TECHNIQUE: Chest CT was performed utilizing contiguous noncontrasted axialimages from the thoracic inlet to below the diaphragm. The images werereformatted in the coronal and sagittal planes. Radiation dosage is10.18mGy COMPARISON: CT chest from 02/06/2025, CT chest from 10/24/2023 and06/22/2023 FINDINGS: Base of neck: The thyroid and base of the neck are within normal limits. Mediastinum: The heart is normal in size, no pericardial effusion. Mildatherosclerosis of the thoracic aorta. Subcentimeter lymph nodes withinthe mediastinal stations. Thoracic aortic measurements as follows: Aortaat the right pulmonary artery-4.4 cm, aortic arch-2.9 cm, aorta at thesinuses of Valsalva-3.5 cm, aorta at the sinotubular junction-3.3 cm. Lungs: Evaluation of the lung parenchyma demonstrates apicalpleural-parenchymal scarring. No focal consolidation or effusion. 4 mmsolid nodule along the right fissure (series 2, image 214). 3 mm solidnodule within the left upper lobe (series 2, image 200). Postoperativechanges of the left lower lung zone. Mucous inspissation within the leftupper lobe. Ground glass attenuation and mild patchy consolidation withinthe right lower lobe The trachea and mainstem bronchi are patent. Upper Abdomen: Limited visualization of the extreme upper abdomendemonstrates elevation of the right hemidiaphragm. Mild thickening of theright adrenal gland. MSK: Soft tissues are normal. Moderate degenerative changes of thoracicspine. IMPRESSION: 1. Thoracic aortic aneurysm is grossly stable. 2. A few small scattered pulmonary nodules grossly stable -------- FINAL REPORT -------- Dictated By: Wayne Morin Dictated Date: 05/10/2025 16:23 ET Assigned Physician: Wayne Morin Reviewed and Electronically Signed By: Wayne Morin Signed Date: 05/10/2025 16:39 ET Workstation ID: [id number] Transcribed By: Self Edit Transcribed Date: 05/10/2025 16:23 ET Ambrocio Yang MD IMG CT PROCEDURES Final Result * Interferon gamma interpretation (05/10/2025 3:08 PM EDT) Quantiferon Plus Interpretation Negative Negative LAB CHEMISTRY METHOD 05/12/2025 10:34 AM EDT [facility] Blood Venous blood specimen / Unknown Venipuncture / Unknown 05/10/2025 3:08 PM EDT 05/10/2025 3:08 PM EDT us Beltran Mendoza MD LAB BLOOD ORDERABLES Final Result [facility] [address] [place] [address], [place] [phone] * Interferon gamma antigen 2 (05/10/2025 3:08 PM EDT) Blood Venous blood specimen / Unknown Venipuncture / Unknown 05/10/2025 3:08 PM EDT 05/10/2025 3:08 PM EDT us Beltran Mendoza MD LAB BLOOD ORDERABLES Final Result Performing Organization Address City/[facility]/ZIP Co de Phone Number [facility] [address] [place] [address], [place] [phone] * Interferon gamma antigen 1 (05/10/2025 3:08 PM EDT) Blood Venous blood specimen / Unknown Venipuncture / Unknown 05/10/2025 3:08 PM EDT 05/10/2025 3:08 PM EDT us Beltran Mendoza MD LAB BLOOD ORDERABLES Final Result Performing Organization Address [facility] Co de Phone Number [facility] [address] [place] [address], [place] [phone] * Interferon gamma mitogen (05/10/2025 3:08 PM EDT) Blood Venous blood specimen / Unknown Venipuncture / Unknown 05/10/2025 3:08 PM EDT 05/10/2025 3:08 PM EDT us Beltran Mendoza MD LAB BLOOD ORDERABLES Final Result Performing Organization Address [facility]/ZIP Co de Phone Number [facility] [address] [place] [address], [place] [phone] * Interferon gamma NIL (05/10/2025 3:08 PM EDT) Blood Venous blood specimen / Unknown Venipuncture / Unknown 05/10/2025 3:08 PM EDT 05/10/2025 3:08 PM EDT us Beltran Mendoza MD LAB BLOOD ORDERABLES Final Result Performing Organization Address [facility]/ZIP Co de Phone Number [facility] [address] [place] [address], [place] [phone] * (ABNORMAL) Lipid panel with reflex to direct LDL (05/10/2025 3:08 PM EDT) Only the most recent of2 resultswithin the time period is included. Cholesterol 142 0 - 200 mg/dL LAB CHEMISTRY METHOD 05/10/2025 6:31 PM EDT [facility] Triglycerides 157(H) 0 - 150 mg/dL LAB CHEMISTRY METHOD 05/10/2025 6:31 PM EDT [facility] HDL 58 >=40 mg/dL LAB CHEMISTRY METHOD 05/10/2025 6:31 PM EDT [facility] LDL Calculated 53 0 - 100 mg/dL LAB CHEMISTRY METHOD 05/10/2025 6:31 PM EDT [facility] Comment:Estimated LDL Calcul ated using equation: Total cholesterol - HDL cholesterol - (Triglycerides/5) VLDL Cholesterol Gold 31.4 mg/dL LAB CHEMISTRY METHOD 05/10/2025 6:31 PM EDT [facility] Non HDL Chol. (LDL+VLDL) 84 <145 mg/dL LAB CHEMISTRY METHOD 05/10/2025 6:31 PM EDT [facility] Chol/HDL Ratio 2.4 0.0 - 4.4 LAB CHEMISTRY METHOD 05/10/2025 6:31 PM EDT [facility] Blood Venous blood specimen / Unknown Venipuncture / Unknown 05/10/2025 3:08 PM EDT 05/10/2025 3:08 PM EDT us Beltran Mendoza MD LAB BLOOD ORDERABLES Final Result [facility] [address] [place] [address], [place] [phone] * Urinalysis microscopic only (05/09/2025 3:46 PM EDT) Only the most recent of2 resultswithin the time period is included. RBC, Urine 2.1 0 - 4 /HPF LAB URINALYSIS - AUTOMATED METHOD 05/09/2025 8:31 PM EDT [facility] WBC, Urine 0.2 0 - 4 /HPF LAB URINALYSIS - AUTOMATED METHOD 05/09/2025 8:31 PM EDT [facility] Squamous Epithelial, Urine 4 0 - 60 /LPF LAB URINALYSIS - AUTOMATED METHOD 05/09/2025 8:31 PM EDT [facility] Bacteria, Urine Negative Negative /HPF LAB URINALYSIS - AUTOMATED METHOD 05/09/2025 8:31 PM EDT [facility] Hyaline Casts, Urine 0.4 0 - 3 /LPF LAB URINALYSIS - AUTOMATED METHOD 05/09/2025 8:31 PM EDT [facility] Urine Urine specimen obtained by clean catch procedure / Unknown Non-blood Collection / Unknown 05/09/2025 3:46 PM EDT 05/09/2025 3:46 PM EDT Griffin Webb NP LAB URINE ORDERABLES Final Re sult Performing Organization Address City/[facility]/ZIP Co de Phone Number [facility] [address] [place] [address], * Culture urine (05/09/2025 3:46 PM EDT) Only the most recent of2 resultswithin the time period is included. Culture, Urine <10,000 CFU/mL gram positive cocci, insignificant count, no further workup 05/10/2025 1:13 PM EDT [facility] Urine Urine specimen obtained by clean catch procedure / Unknown Non-blood Collection / Unknown 05/09/2025 3:46 PM EDT 05/09/2025 3:46 PM EDT Griffin Webb NP LAB MICROBIOLOGY - GENERAL OR DERABLES Final Result Performing Organization Address City/[facility]/ZIP Co de Phone Number [facility] [address] [place] [address], * COLONOSCOPY Anesthesia - MAC; [facility] ENDOSCOPY (04/08/2025 3:28 PM EDT) Anatomical Region Laterality Modality Endoscopy 04/08/2025 2:49 PM EDT Impressions 04/08/2025 3:30 PM EDT - Hemorrhoids found on perianal exam. - Four 7 to 9 mm polyps in the ascending colon, removed using injection-lift and a hot snare. Resected and retrieved. - One 25 mm polyp in the distal ascending colon, removed with a hot snare. Resected and retrieved. - The entire examined colon is normal. Biopsied. Recommendation: - Discharge patient to home. - High fiber diet. - Continue present medications. - Await pathology results. - Repeat colonoscopy for surveillance based on pathology results. Narrative 04/08/2025 3:30 PM EDT [facility] GI Patient Name: Pat Asencio Procedure Date: 04/08/2025 2:49 PM Date of : 1945 Age: 79 Gender: Female Note Status: Finalized Attending MD: Ashanti Malcolm DO, [id number] Procedure Date No Time: 04/08/2025 Procedure: Colonoscopy Indications: Change in bowel habits Providers: Ashanti Malcolm DO Referring MD: Beltran Mendoza MD Medicines: Monitored Anesthesia Care Complications: No immediate complications. Estimated blood loss: Minimal. Estimated Blood Loss: Estimated blood loss was minimal. Procedure: Pre-Anesthesia Assessment: - - Prior to the procedure, a History and Physical was performed, and patient medications and allergies were reviewed. The patient is competent. The risks and benefits of the procedure and the sedation options and risks were discussed with the patient. All questions were answered and informed consent was obtained. Patient identification and proposed procedure were verified by the physician, the nurse, the anesthesiologist, the hat forming machine feeder and the nuclear monitoring technician in the pre-procedure area in the endoscopy suite. Mental Status Examination: alert and oriented. Airway Examination: normal oropharyngeal airway and neck mobility. Respiratory Examination: clear to auscultation. CV Examination: normal. Prophylactic Antibiotics: The patient does not require prophylactic antibiotics. Prior Anticoagulants: The patient has taken no anticoagulant or antiplatelet agents. ASA Grade Assessment: II - A patient with mild systemic disease. After reviewing the risks and benefits, the patient was deemed in satisfactory condition to undergo the procedure. The anesthesia plan was to use monitored anesthesia care (MAC). Immediately prior to administration of medications, the patient was re-assessed for adequacy to receive sedatives. The heart rate, respiratory rate, oxygen saturations, blood pressure, adequacy of pulmonary ventilation, and response to care were monitored throughout the procedure. The physical status of the patient was re-assessed after the procedure. After I obtained informed consent, the scope was passed under direct vision. Throughout the procedure, the patient's blood pressure, pulse, and oxygen saturations were monitored continuously. The Olympus Pediatric Colonoscope was introduced through the anus and advanced to the cecum, identified by appendiceal orifice and ileocecal valve. The colonoscopy was performed without difficulty. The patient tolerated the procedure well. The quality of the bowel preparation was good. The ileocecal valve, appendiceal orifice, and rectum were photographed. The colonoscopy was performed with moderate difficulty due to significant looping. Successful completion of the procedure was aided by applying abdominal pressure. Findings: Hemorrhoids were found on perianal exam. A few small-mouthed diverticula were found in the sigmoid colon and descending colon. There was no evidence of diverticular bleeding. Four sessile polyps were found in the ascending colon. The polyps were 7 to 9 mm in size. These polyps were removed with a saline injection-lift technique using a hot snare. Resection and retrieval were complete. Verification of patient identification for the specimen was done. Estimated blood loss was minimal. A 25 mm polyp was found in the distal ascending colon. The polyp was sessile. The polyp was removed with a hot snare. Resection and retrieval were complete. Estimated blood loss was minimal. The colon (entire examined portion) appeared normal. Biopsies for histology were taken with a cold forceps for evaluation of microscopic colitis. Estimated blood loss was minimal. Procedure Code(s): --- Professional --- 05963, Colonoscopy, flexible; with removal of tumor(s), polyp(s), or other lesion(s) by snare technique 26165, Colonoscopy, flexible; with directed submucosal injection(s), any substance 45480, 59, Colonoscopy, flexible; with biopsy, single or multiple Diagnosis Code(s): --- Professional --- K64.9, Unspecified hemorrhoids D12.2, Benign neoplasm of ascending colon R19.4, Change in bowel habit CPT copyright 2020 [employer]. All rights reserved. The codes documented in this report are preliminary and upon skein bleacher review may be revised to meet current compliance requirements. ASHANTI Malcolm DO 04/08/2025 3:30:01 PM This report has been signed electronically.Ashanti Malcolm DO Number of Addenda: 0 Note Initiated On: 04/08/2025 2:49 PM Scope Withdrawal Time: 0 hours 14 minutes 9 seconds Scope In: 3:04:53 PM Scope Out: 3:27:19 PM Endoscopy Department at [facility] - [address] [place] [phone] Procedure Note Ashanti Malcolm DO - 04/08/2025 [facility] GI Patient Name: Pat Asencio Procedure Date: 04/08/2025 2:49 PM Date of : 1945 Age: 79 Gender: Female Note Status: Finalized Attending MD: Ashanti Malcolm DO, [id number] Procedure Date No Time: 04/08/2025 Procedure: Colonoscopy Indications: Change in bowel habits Providers: Ashanti Malcolm DO Referring MD: Beltran Mendoza MD Medicines: Monitored Anesthesia Care Complications: No immediate complications. Estimated blood loss: Minimal. Estimated Blood Loss: Estimated blood loss was minimal. Procedure: Pre-Anesthesia Assessment: - - Prior to the procedure, a History and Physicalwas performed, and patient medications and allergieswere reviewed. The patient is competent. The risks and benefits of the procedure and the sedation optionsand risks were discussed with the patient. Allquestions were answered and informed consent was obtained. Patient identification and proposed procedure were verified by the physician, the nurse, the anesthesiologist, the hat forming machine feeder and thetechnician in the pre-procedure area in the endoscopy suite. Mental Status Examination: alert and oriented.Airway Examination: normal oropharyngeal airway and neck mobility. Respiratory Examination: clear to auscultation. CV Examination: normal. Prophylactic Antibiotics: The patient does not requireprophylactic antibiotics. Prior Anticoagulants: The patient has taken no anticoagulant or antiplatelet agents. ASA Grade Assessment: II - A patient with mild systemic disease. After reviewing the risks and benefits,the patient was deemed in satisfactory condition to undergo the procedure. The anesthesia plan was touse monitored anesthesia care (MAC). Immediately priorto administration of medications, the patient was re-assessed for adequacy to receive sedatives. The heart rate, respiratory rate, oxygen saturations, blood pressure, adequacy of pulmonary ventilation,and response to care were monitored throughout the procedure. The physical status of the patient was re-assessed after the procedure. After I obtained informed consent, the scope was passed under direct vision. Throughout theprocedure, the patient's blood pressure, pulse, and oxygen saturations were monitored continuously. TheOlympus Pediatric Colonoscope was introduced through theanus and advanced to the cecum, identified byappendiceal orifice and ileocecal valve. The colonoscopy was performed without difficulty. The patient tolerated the procedure well. The quality of the bowel preparation was good. The ileocecal valve,appendiceal orifice, and rectum were photographed. Thecolonoscopy was performed with moderate difficulty due to significant looping. Successful completion of the procedure was aided by applying abdominalpressure. Findings: Hemorrhoids were found on perianal exam. A few small-mouthed diverticula were found in the sigmoid colon and descending colon. There was no evidence of diverticular bleeding. Four sessile polyps were found in the ascendingcolon. The polyps were 7 to 9 mm in size. These polypswere removed with a saline injection-lift techniqueusing a hot snare. Resection and retrieval were complete. Verification of patient identification for the specimen was done. Estimated blood loss wasminimal. A 25 mm polyp was found in the distal ascendingcolon. The polyp was sessile. The polyp was removed with a hot snare. Resection and retrieval were complete. Estimated blood loss was minimal. The colon (entire examined portion) appearednormal. Biopsies for histology were taken with a coldforceps for evaluation of microscopic colitis. Estimatedblood loss was minimal. Procedure Code(s): --- Professional --- 28505, Colonoscopy, flexible; with removal of tumor(s), polyp(s), or other lesion(s) by snare technique 28163, Colonoscopy, flexible; with directedsubmucosal injection(s), any substance 32383, 59, Colonoscopy, flexible; with biopsy,single or multiple Diagnosis Code(s): --- Professional --- K64.9, Unspecified hemorrhoids D12.2, Benign neoplasm of ascending colon R19.4, Change in bowel habit CPT copyright 2020 [employer]. All rights reserved. The codes documented in this report are preliminary and upon skein bleacher reviewmay be revised to meet current compliance requirements. ASHANTI Malcolm DO 04/08/2025 3:30:01 PM This report has been signed electronically.Ashanti Malcolm DO Number of Addenda: 0 Note Initiated On: 04/08/2025 2:49 PM Scope Withdrawal Time: 0 hours 14 minutes 9 seconds Scope In: 3:04:53 PM Scope Out: 3:27:19 PM Endoscopy Department at [facility] - [address] [place] [phone] IMPRESSION: - Hemorrhoids found on perianal exam. - Four 7 to 9 mm polyps in the ascending colon, removed using injection-lift and a hot snare.Resected and retrieved. - One 25 mm polyp in the distal ascending colon, removed with a hot snare. Resected and retrieved. - The entire examined colon is normal. Biopsied. Recommendation: - Discharge patient to home. - High fiber diet. - Continue present medications. - Await pathology results. - Repeat colonoscopy for surveillance based on pathology results. Lidia Barahona MD GI~PROCEDURE ORDERABLES Fin al Result * Tissue exam (04/08/2025 3:18 PM EDT) Final Diagnosis A. Ascending Colon, polyps x 5: Sessile serrated lesion(s), fragmented. Tubular adenoma(s), fragmented. B. Colon, random biopsies: Benign colonic mucosa with no specific pathologic change. No colitis identified. 04/09/2025 10:27 AM EDT [facility] ([facility] LAB Gross Description A. Large Intestine, Right/Ascendi ng Colon, polyp x 5: Labeled ascending colon polyp x 5 . Received in formalin is a 0.9 x 0.8 x 0.5 cm disrupted pink-red mucosal polyp. The resection margin is inked black. The polyp is bisected. Also received in the same container is an additional 1.1 cm aggregate of irregular granger mucosal tissue fragments admixed with organic debris, ranging from 0.1 cm to 0.7 cm in greatest dimension. The specimen is wrapped in paper and entirely submitted in two cassettes, three pieces and multiple pieces, respectively, multiple levels on each slide. B. Colon, random biopsies: Labeled colon random . Received in formalin is a 0.3 cm irregular granger mucosal tissue fragment which is wrapped in paper and submitted in toto in one cassette, one piece, multiple levels on one slide. K[place]IGH 04/09/2025 10:27 AM EDT [facility] Disclaimer Unless otherwise specified, all tissue is 10% NB formalin fixed and paraffin embedded. 04/09/2025 10:27 AM EDT [facility] Tissue Ascending colon structure / Unknown 04/08/2025 3:18 PM EDT 04/08/2025 3:40 PM EDT Tissue specimen (specimen) Colon structure / Unknown 04/08/2025 3:25 PM EDT 04/08/2025 3:40 PM EDT us Ashanti Malcolm DO LAB PATHOLOGY ORDERABLES Final R esult [facility] [address] [place] [address], [place] [phone] * Sodium (04/01/2025 4:29 PM EDT) Sodium 133 133 - 145 mmol/L LAB CHEMISTRY METHOD 04/01/2025 6:38 PM EDT [facility] Blood Venous blood specimen / Unknown Venipuncture / Unknown 04/01/2025 4:29 PM EDT 04/01/2025 4:29 PM EDT Beltran Mendoza MD LAB BLOOD ORDERABLES Final Result [facility] [address] [place] [address], [place] [phone] * CT Cervical Spine wo Contrast (03/28/2025 4:42 PM EDT) Anatomical Region Laterality Modality Spine, C-spine Computed Tomogra phy 03/29/2025 8:27 AM EDT Impressions 03/29/2025 8:30 AM EDT No acute fracture or traumatic subluxation of the cervical spine. -------- FINAL REPORT -------- Dictated By: Mars Catherine Dictated Date: 03/29/2025 08:27 ET Assigned Physician: Mars Catherine Reviewed and Electronically Signed By: Mars Catherine Signed Date: 03/29/2025 08:30 ET Workstation ID: [id number] Transcribed By: Self Edit Transcribed Date: 03/29/2025 08:27 ET Narrative 03/29/2025 8:30 AM EDT PROCEDURE: Noncontrast CT of the cervical spine. HISTORY: trauma, neck pain. TECHNIQUE: Noncontrast CT of the cervical spine with coronal and sagittal reformats. COMPARISON: None. Dose length product: 1468 mGy-cm. FINDINGS: Punctate sialolith in the right parotid. Atherosclerotic calcifications of the carotid bulbs. No other paraspinous soft tissue findings. No prevertebral soft tissue swelling or CT evidence of an acute epidural hematoma. Normal alignment. No fracture or bony lesion. Mild-moderate degenerative changes of the vertebral endplates, most prominent at C5-6, and throughout the cervical facet joints. No significant spinal stenosis. Procedure Note Mars Catherine MD - 03/29/2025 PROCEDURE: Noncontrast CT of the cervical spine. HISTORY: trauma, neck pain. TECHNIQUE: Noncontrast CT of the cervical spine with coronal and sagittalreformats. COMPARISON: None. Dose length product: 1468 mGy-cm. FINDINGS: Punctate sialolith in the right parotid. Atherosclerotic calcificationsof the carotid bulbs. No other paraspinous soft tissue findings. Noprevertebral soft tissue swelling or CT evidence of an acute epiduralhematoma. Normal alignment. No fracture or bony lesion. Mild-moderate degenerativechanges of the vertebral endplates, most prominent at C5-6, and throughoutthe cervical facet joints. No significant spinal stenosis. IMPRESSION: No acute fracture or traumatic subluxation of the cervical spine. -------- FINAL REPORT -------- Dictated By: Mars Catherine Dictated Date: 03/29/2025 08:27 ET Assigned Physician: Mars Catherine Reviewed and Electronically Signed By: Mars Catherine Signed Date: 03/29/2025 08:30 ET Workstation ID: [id number] Transcribed By: Self Edit Transcribed Date: 03/29/2025 08:27 ET us Jeffery Franklin MD IM CT PROCEDURES Final Result * CT Head wo Contrast (03/28/2025 4:42 PM EDT) Anatomical Region Laterality Modality Head and Neck Computed Tomogra phy 03/28/2025 4:58 PM EDT Impressions 03/28/2025 5:01 PM EDT No acute intracranial findings. -------- FINAL REPORT -------- Dictated By: Mars Catherine Dictated Date: 03/28/2025 16:58 ET Assigned Physician: Mars Catherine Reviewed and Electronically Signed By: Mars Catherine Signed Date: 03/28/2025 17:01 ET Workstation ID: [id number] Transcribed By: Self Edit Transcribed Date: 03/28/2025 16:58 ET Narrative 03/28/2025 5:01 PM EDT PROCEDURE: Noncontrast head CT. HISTORY: Head injury with or without LOC. COMPARISON: 03/23/2024. TECHNIQUE: Noncontrast head CT with coronal and sagittal reformats. Dose length product: Total for all concurrently acquired exams was 1468 mGy-cm. FINDINGS: BRAIN: No hemorrhage, edema, mass, or extra-axial fluid collection. No CT evidence of an acute large vessel infarct. Ventricles and sulci are age commensurate. Patchy hypoattenuation in the supratentorial white matter suggestive of mild chronic microvascular ischemic disease. Atherosclerotic calcifications of the vertebral arteries and carotid siphons. ORBITS: Lens implants. SINUSES/MASTOIDS: The anterior clinoids are pneumatized and communicate with the sphenoid sinuses. Slight rightward bowing of the nasal septum with an apical septal spur. CALVARIUM: Mild hyperostosis frontalis interna. OTHER: The skull base soft tissues are normal. Debris in the left EAC. Mild degenerative changes of the temporomandibular joints, right greater than left. Procedure Note Mars Catherine MD - 03/28/2025 PROCEDURE: Noncontrast head CT. HISTORY: Head injury with or without LOC. COMPARISON: 03/23/2024. TECHNIQUE: Noncontrast head CT with coronal and sagittal reformats. Dose length product: Total for all concurrently acquired exams was 1468mGy-cm. FINDINGS: BRAIN: No hemorrhage, edema, mass, or extra-axial fluid collection. No CTevidence of an acute large vessel infarct. Ventricles and sulci are agecommensurate. Patchy hypoattenuation in the supratentorial white mattersuggestive of mild chronic microvascular ischemic disease.Atherosclerotic calcifications of the vertebral arteries and carotidsiphons. ORBITS: Lens implants. SINUSES/MASTOIDS: The anterior clinoids are pneumatized and communicatewith the sphenoid sinuses. Slight rightward bowing of the nasal septumwith an apical septal spur. CALVARIUM: Mild hyperostosis frontalis interna. OTHER: The skull base soft tissues are normal. Debris in the left EAC.Mild degenerative changes of the temporomandibular joints, right greaterthan left. IMPRESSION: No acute intracranial findings. -------- FINAL REPORT -------- Dictated By: Mars Catherine Dictated Date: 03/28/2025 16:58 ET Assigned Physician: Mars Catherine Reviewed and Electronically Signed By: Mars Catherine Signed Date: 03/28/2025 17:01 ET Workstation ID: [id number] Transcribed By: Self Edit Transcribed Date: 03/28/2025 16:58 ET us Jeffery Franklin MD IMG CT PROCEDURES Final Result * Thyroid stimulating hormone with reflex to free t4 and free t3 (03/26/2025 4:43 PM EDT) TSH 3.11 0.40 - 4.00 mcIU/mL LAB CHEMISTRY METHOD 03/26/2025 8:38 PM EDT [facility] Blood Venous blood specimen / Unknown Venipuncture / Unknown 03/26/2025 4:43 PM EDT 03/26/2025 4:43 PM EDT us Beltran Mendoza MD LAB BLOOD ORDERABLES Final Result [facility] [address] [place] [address], [place] [phone] * (ABNORMAL) CBC auto differential (03/26/2025 4:43 PM EDT) Only the most recent of2 resultswithin the time period is included. [facility] WBC 6.8 4.8 - 10.8 K/mcL LAB HEMETOLOGY METHOD 03/26/2025 6:25 PM EDT [facility] RBC 4.60 3.80 - 4.80 M/mcL LAB HEMETOLOGY METHOD 03/26/2025 6:25 PM EDT [facility] Hemoglobin 13.8 11.5 - 16.0 g/dL LAB HEMETOLOGY METHOD 03/26/2025 6:25 PM EDT [facility] Hematocrit 41.5 35.0 - 47.0 % LAB HEMETOLOGY METHOD 03/26/2025 6:25 PM EDT [facility] MCV 91.0 79.0 - 98.0 FL LAB HEMETOLOGY METHOD 03/26/2025 6:25 PM EDT [facility] MCH 30.3 27.0 - 32.0 pcg LAB HEMETOLOGY METHOD 03/26/2025 6:25 PM EDT [facility] MCHC 33.3 32.0 - 37.0 g/dL LAB HEMETOLOGY METHOD [facility]/26[facility]2025 [facility] RDW 12.4 11.0 - 15.0 % LAB HEMETOLOGY METHOD 03/26/2025 6:25 PM EDT [facility] Platelets 276 130 - 400 K/mcL LAB HEMETOLOGY METHOD 03/26/2025 6:25 PM [facility] MPV 11.5(H) 7.0 - 11.0 FL LAB HEMETOLOGY METHOD 03/26/2025 6:25 PM EDT [facility] NRBC 0.0 <1.0 % LAB HEMETOLOGY METHOD 03/26/2025 6:[facility] NRBC Absolute 0.00 <0.10 K/mcL LAB HEMETOLOGY METHOD 03/26/2025 6:25 PM [facility] Neutrophils Relative 67.4 % LAB HEMETOLOGY METHOD 03/26/2025 6:[facility] Lymphocytes Relative 25.1 % LAB HEMETOLOGY METHOD 03/26/2025 6:[facility] Monocytes Relative 6.5 % LAB HEMETOLOGY METHOD 03/26/2025 6:25 PM [facility] Eosinophils Relative 0.6 % LAB HEMETOLOGY METHOD 03/26/2025 6:[facility] Basophils Relative 0.3 % LAB HEMETOLOGY METHOD 03/26/2025 6:[facility] Immature Granulocytes Relative 0.1 % LAB HEMETOLOGY METHOD 03/26/2025 6:25 PM EDT [facility] Neutrophils Absolute 4.59 1.50 - 7.00 K/mcL LAB HEMETOLOGY METHOD 03/26/2025 6:[facility] Lymphocytes Absolute 1.71 1.00 - 5.00 K/mcL LAB HEMETOLOGY METHOD 03/26/2025 6:25 PM EDT [facility] Monocytes Absolute 0.44 0.20 - 1.00 K/mcL LAB HEMETOLOGY METHOD 03/26/2025 6:25 PM EDT [facility] Eosinophils Absolute 0.04 0.00 - 0.50 K/mcL LAB HEMETOLOGY METHOD 03/26/2025 6:25 PM EDT [facility] Basophils Absolute 0.02 0.00 - 0.20 K/mcL LAB HEMETOLOGY METHOD 03/26/2025 6:25 PM EDT [facility] Immature Granulocytes Absolute 0.01 0.00 - 0.03 K/mcL LAB HEMETOLOGY METHOD 03/26/2025 6:25 PM EDT [facility] Blood Venous blood specimen / Unknown Venipuncture / Unknown 03/26/2025 4:43 PM EDT 03/26/2025 4:43 PM EDT Beltran Mendoza MD LAB BLOOD ORDERABLES Final Result [facility] [address] [place] [address], * (ABNORMAL) Basic metabolic panel (03/26/2025 4:43 PM EDT) Sodium 132(L) 133 - 145 mmol/L LAB CHEMISTRY METHOD 03/26/2025 7:41 PM EDT [facility] Potassium 3.9 3.5 - 5.5 mmol/L LAB CHEMISTRY METHOD 03/26/2025 7:[facility] Chloride 95(L) 96 - 110 mmol/L LAB CHEMISTRY METHOD 03/26/2025 7:41 PM [facility] CO2 31 21 - 32 mmol/L LAB CHEMISTRY METHOD 03/26/2025 7:41 PM EDT [facility] Anion Gap 6 3 - 11 LAB CHEMISTRY METHOD 03/26/2025 7:41 PM EDT [facility] Glucose 82 70 - 100 mg/dL LAB CHEMISTRY METHOD 03/26/2025 7:41 PM EDT [facility] BUN 11 5 - 25 mg/dL LAB CHEMISTRY METHOD 03/26/2025 7:41 PM EDT [facility] Creatinine 0.69 0.50 - 1.10 mg/dL LAB CHEMISTRY METHOD 03/26/2025 7:41 PM EDT [facility] eGFR 90 >=60 mL/min/1. 73m2 LAB CHEMISTRY METHOD 03/26/2025 7:41 PM EDT [facility] Comment:Calculation based on the Chronic Kidney Disease Epidemiology Collaboration (CKD-EPI) equation refit without adjustment for race. BUN/Creatinine Ratio 15.9 LAB CHEMISTRY METHOD 03/26/2025 7:41 PM EDT [facility] Calcium 10.1 8.5 - 10.5 mg/dL LAB CHEMISTRY METHOD 03/26/2025 7:41 PM EDT [facility] Blood Venous blood specimen / Unknown Venipuncture / Unknown 03/26/2025 4:43 PM EDT 03/26/2025 4:43 PM EDT us Beltran Mendoza MD LAB BLOOD ORDERABLES Final Result [facility] [address] [place] [address], * ECG-Annotated (03/25/2025) us Provider Onbase ECG ORDERABLES Final Result * CT Abdomen Pelvis w Contrast (03/22/2025 7:09 PM EDT) Anatomical Region Laterality Modality Body Computed Tomogra phy 03/22/2025 7:48 PM EDT Impressions 03/22/2025 7:48 PM EDT Impression: Moderately increased stool quantity may indicate constipation. Status post right hemicolectomy. No evidence recurrence of the patient's colon cancer or metastatic disease. Follow up with colonoscopy. This document has been electronically signed by: Renetta Grayson MD on 03/22/2025 19:48:41 Narrative 03/22/2025 7:48 PM EDT INDICATION: Abdominal pain, acute, no prior medical history CT abdomen and pelvis with contrast Comparison: None available Findings: Right lung base subsegmental atelectasis. Left lung base postsurgical change in curvilinear scarring. Unremarkable gallbladder and bladder. Hepatic granulomatosis. Pancreatic parenchymal calcifications versus vascular calcifications in the region of the pancreatic head and uncinate process. The other solid organs are unremarkable. Oral contrast reaches the distal small bowel. Small hiatal hernia. No bowel wall thickening or dilation. Status post right hemicolectomy. Colonic diverticulosis. Moderately increased stool quantity. 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 No abdominal aortic aneurysm. Moderate calcified atherosclerotic disease. No lymphadenopathy. No ascites. No acute osseous abnormality. Status post fixation of the left proximal femur. Intact hardware. Procedure Note Renetta Jacob MD - 03/22/2025 INDICATION: Abdominal pain, acute, no prior medical history CT abdomen and pelvis with contrast Comparison: None available Findings: Right lung base subsegmental atelectasis. Left lung base postsurgical change in curvilinear scarring. Unremarkable gallbladder and bladder. Hepatic granulomatosis. Pancreatic parenchymal calcifications versus vascular calcifications in the regionof the pancreatic head and uncinate process. The other solid organs are unremarkable. Oral contrast reaches the distal small bowel. Small hiatal hernia. No bowel wall thickening or dilation. Status post right hemicolectomy. Colonic diverticulosis. Moderately increased stool quantity. 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 No abdominal aortic aneurysm. Moderate calcified atherosclerotic disease. No lymphadenopathy. No ascites. No acute osseous abnormality. Status post fixation of the left proximal femur. Intact hardware. IMPRESSION: Impression: Moderately increased stool quantity may indicate constipation. Statuspost right hemicolectomy. No evidence recurrence of the patient's coloncancer or metastatic disease. Follow up with colonoscopy. This document has been electronically signed by: Renetta Grayson MD on 03/22/2025 19:48:41 Ajay Royal Perales MD IMG CT PROCEDURES Final Result * ECG 12 lead (03/22/2025 5:43 PM EDT) Only the most recent of2 resultswithin the time period is included. [facility] Ventricular Rate ECG 69 BPM GEMUSE Atrial Rate 69 BPM GEMUSE P-R Interval 206 ms GEMUSE QRS Duration 82 ms GEMUSE Q-T Interval 412 ms GEMUSE QTc 441 ms GEMUSE P Wave [place] 35 degrees GEMUSE R [place] -9 degrees GEMUSE T [place] 39 degrees GEMUSE ECG Interpretation Normal sinus rhythm Normal ECG When compared with ECG of 22-MAR-2025 15:46, (unconfirmed) No significant change was found Confirmed by MARCOS TEJADA ([id number]) on 03/23/2025 7:58:25 AM GEMUSE 03/22/2025 5:43 PM EDT 03/23/2025 7:58 AM EDT Ajay Royal Perales MD ECG ORDERABLES Final Result GEMUSE * Troponin I high sensitivity (03/22/2025 5:27 PM EDT) Only the most recent of2 resultswithin the time period is included. [facility] High Sensitivity Troponin I 7 <=54 ng/L LAB CHEMISTRY METHOD 03/22/2025 6:27 PM EDT [facility] Blood Venous blood specimen / Unknown Venipuncture / Unknown 03/22/2025 5:27 PM EDT 03/22/2025 5:58 PM EDT Narrative [facility] - 03/22/2025 6:27 PM EDT High levels of biotin in samples may falsely decrease hsTroponin values. Use caution when interpreting hsTroponin results in patients taking biotin who exhibit renal impairment (eGFR <60) or in patients taking more than 20 mg/day of biotin. Ajaysurendra Perales MD LAB BLOOD ORDERABLES Final [facility]u lt [facility] [address] [place] [address], [place] [phone] * XR Chest 2 Views (03/22/2025 4:31 PM EDT) Anatomical Region Laterality Modality Body Radiographic Kristie ging 03/22/2025 5:14 PM EDT Impressions 03/22/2025 5:27 PM EDT FINDINGS/IMPRESSION: Elevation of the right hemidiaphragm. Volume loss and scarring at the lung bases. No consolidation or effusion. Postsurgical changes left chest. -------- FINAL REPORT -------- Dictated By: Lisa Mendoza Dictated Date: 03/22/2025 17:14 ET Assigned Physician: Lisa Mendoza Reviewed and Electronically Signed By: Lisa Mendoza Signed Date: 03/22/2025 17:27 ET Workstation ID: [id number] Transcribed By: Self Edit Transcribed Date: 03/22/2025 17:14 ET Narrative 03/22/2025 5:27 PM EDT XR CHEST 2 VIEWS INDICATION: chest pain TECHNIQUE: XR CHEST 2 VIEWS COMPARISON: No priors available. Procedure Note Lisa Mendoza MD - 03/22/2025 XR CHEST 2 VIEWS INDICATION: chest pain TECHNIQUE: XR CHEST 2 VIEWS COMPARISON: No priors available. IMPRESSION: FINDINGS/IMPRESSION: Elevation of the right hemidiaphragm. Volume lossand scarring at the lung bases. No consolidation or effusion.Postsurgical changes left chest. -------- FINAL REPORT -------- Dictated By: Lisa Mendoza Dictated Date: 03/22/2025 17:14 ET Assigned Physician: Lisa Mendoza Reviewed and Electronically Signed By: Lisa Mendoza Signed Date: 03/22/2025 17:27 ET Workstation ID: [id number] Transcribed By: Self Edit Transcribed Date: 03/22/2025 17:14 ET us Ajay Perales MD IMG XR PROCEDURES Final Result * Urinalysis with reflex microscopic and culture (03/22/2025 4:00 PM EDT) Pathologist [facility] Specific Sells Urine 1.005 1.003 - 1.030 LAB URINALYSIS - AUTOMATED METHOD 03/22/2025 4:28 PM [facility] pH, Urine 7.5 5.0 - 8.0 pH LAB URINALYSIS - AUTOMATED METHOD 03/22/2025 4:28 PM [facility] Leukocytes, Urine Negative Negative LAB URINALYSIS - AUTOMATED METHOD 03/22/2025 4:28 PM [facility] Nitrite, Urine Negative Negative LAB URINALYSIS - AUTOMATED METHOD 03/22/2025 4:28 PM [facility] Protein, Urine Negative <=Trace mg/dL LAB URINALYSIS - AUTOMATED METHOD 03/22/2025 4:28 PM [facility] Glucose, Urine Negative Negative mg/dL LAB URINALYSIS - AUTOMATED METHOD 03/22/2025 4:28 PM [facility] Ketones, Urine Negative Negative mg/dL LAB URINALYSIS - AUTOMATED METHOD 03/22/2025 4:28 PM [facility] Urobilinogen, Urine 0.2 0.2 - 1.0 mg/dL LAB URINALYSIS - AUTOMATED METHOD 03/22/2025 4:28 PM [facility] Bilirubin, Urine Negative Negative LAB URINALYSIS - AUTOMATED METHOD 03/22/2025 4:28 PM [facility] Blood, Urine Negative Negative LAB URINALYSIS - AUTOMATED METHOD 03/22/2025 4:28 PM [facility] Urine Urine specimen obtained by clean catch procedure / Unknown Non-blood Collection / Unknown 03/22/2025 4:00 PM EDT 03/22/2025 4:21 PM EDT us Ajaysurendra Perales MD LAB URINE ORDERABLES Final Resu lt [facility] [address] [place] [address], [place] [phone] * [place] urine culture tube (03/22/2025 4:00 PM EDT) [facility] Extra Tube Hold for add-ons. 03/22/2025 6:01 PM EDT [facility] Comment:Auto resulted. Urine Urine specimen obtained by clean catch procedure / Unknown Non-blood Collection / Unknown 03/22/2025 4:00 PM EDT 03/22/2025 4:21 PM EDT Ajay Perales MD LAB URINE ORDERABLES Final Resu lt Performing Organization Address City/[facility]/ZIP Co de Phone Number [facility] [address] [place] [address], [place] [phone] * B-type natriuretic peptide (03/22/2025 3:47 PM EDT) [facility] BNP 77 <=100 pcg/mL LAB CHEMISTRY METHOD 03/22/2025 5:03 PM EDT [facility] Blood Venous blood specimen / Unknown Venipuncture / Unknown 03/22/2025 3:47 PM EDT 03/22/2025 4:21 PM EDT us Ajay Perales MD LAB BLOOD ORDERABLES Final Resu lt [facility] [address] [place] [address], [place] [phone] * (ABNORMAL) Magnesium (03/22/2025 3:47 PM EDT) [facility] Magnesium 1.8(L) 1.9 - 2.6 mg/dL LAB CHEMISTRY METHOD 03/22/2025 4:56 PM EDT [facility] Blood Venous blood specimen / Unknown Venipuncture / Unknown 03/22/2025 3:47 PM EDT 03/22/2025 4:21 PM EDT [facility] LAB BLOOD ORDERABLES Final Resu lt Performing Organization Address City/[facility]/ZIP Co de Phone Number [facility] [address] [place] [address], [place] [phone] * (ABNORMAL) Lipase (03/22/2025 3:47 PM EDT) Pathologist [facility] Lipase 84(H) 13 - 75 unit/L LAB CHEMISTRY METHOD 03/22/2025 4:56 PM EDT [facility] Blood Venous blood specimen / Unknown Venipuncture / Unknown 03/22/2025 3:47 PM EDT 03/22/2025 4:21 PM EDT Ajay Perales MD LAB BLOOD ORDERABLES Final Resu lt Performing Organization Address City/[facility]/ZIP Co de Phone Number [facility] [address] [place] [address], [place] [phone] * (ABNORMAL) Comprehensive metabolic panel (03/22/2025 3:47 PM EDT) [facility] Sodium 134 133 - 145 mmol/L LAB CHEMISTRY METHOD 03/22/2025 4:56 PM EDT [facility] Potassium 3.7 3.5 - 5.5 mmol/L LAB CHEMISTRY METHOD 03/22/2025 4:56 PM EDT [facility] Chloride 97 96 - 110 mmol/L LAB CHEMISTRY METHOD 03/22/2025 4:56 PM EDT [facility] CO2 31 21 - 32 mmol/L LAB CHEMISTRY METHOD 03/22/2025 4:56 PM EDT [facility] Anion Gap 6 3 - 11 LAB CHEMISTRY METHOD 03/22/2025 4:56 PM EDT [facility] Glucose 88 70 - 100 mg/dL LAB CHEMISTRY METHOD 03/22/2025 4:56 PM [facility] BUN 6 5 - 25 mg/dL LAB CHEMISTRY METHOD 03/22/2025 4:56 PM [facility] Creatinine 0.65 0.50 - 1.10 mg/dL LAB CHEMISTRY METHOD 03/22/2025 4:56 PM [facility] eGFR 91 >=60 mL/min/1. 73m2 LAB CHEMISTRY METHOD 03/22/2025 4:56 PM [facility] Comment:Calculation based on the Chronic Kidney Disease Epidemiology Collaboration (CKD-EPI) equation refit without adjustment for race. BUN/Creatinine Ratio 9.2 LAB CHEMISTRY METHOD 03/22/2025 4:56 PM [facility] Calcium 9.3 8.5 - 10.5 mg/dL LAB CHEMISTRY METHOD 03/22/2025 4:56 PM [facility] AST (SGOT) 24 10 - 42 unit/L LAB CHEMISTRY METHOD 03/22/2025 4:56 PM [facility] ALT (SGPT) 17 10 - 60 unit/L LAB CHEMISTRY METHOD 03/22/2025 4:56 PM [facility] Alkaline Phosphatase 130(H) 42 - 121 unit/L LAB CHEMISTRY METHOD 03/22/2025 4:56 PM [facility] Total Protein 7.6 6.0 - 8.0 g/dL LAB CHEMISTRY METHOD 03/22/2025 4:56 PM [facility] Albumin 4.0 3.2 - 5.0 g/dL LAB CHEMISTRY METHOD 03/22/2025 4:56 PM [facility] Total Bilirubin 0.5 0.0 - 1.4 mg/dL LAB CHEMISTRY METHOD 03/22/2025 4:56 PM [facility] Blood Venous blood specimen / Unknown Venipuncture / Unknown 03/22/2025 3:47 PM EDT 03/22/2025 4:21 PM EDT Ajay Perales MD LAB BLOOD ORDERABLES Final Resu lt [facility] [address] [facility] [place] [address], * (ABNORMAL) POC Urine Non-Auto W/O Micro (03/16/2025 4:09 PM EDT) GLUCOSE POC Negative Negative, Trace mg/dL Leukocytes UA POC 2+(A) Negative mg/dL Nitrite UA POC Positive Urobilinogen UA POC 0.2 E.U./dL mg/dL Protein UA POC Positive Positive, Negative PH UA POC 7.0 SHER/HM UA POC 250(A) Negative Specific Sells UA POC <=1.005 Ketones UA POC Negative Negative Bilirubin UA POC Negative Negative Urine Urine specimen obtained by clean catch procedure / Unknown 03/16/2025 4:09 PM EDT [facility] POINT OF CARE TEST ENTER/E DIT ORDERABLES Final Result * MG Mammo Digital Screening w Pj bilat (12/25/2024 4:40 PM EDT) Anatomical Region Laterality Modality Breast Bilateral Mammography 12/26/2024 9:29 AM EDT Impressions 12/26/2024 9:32 AM EDT No mammographic evidence of malignancy. BI-RADS CATEGORY: 1 - NEGATIVE RECOMMENDATION: Screening bilateral mammogram is recommended in 1 year. Mammo Location: [facility], [address] [place] [address], [id number], . -------- FINAL REPORT -------- Dictated By: Tierra Casillas Dictated Date: 12/26/2024 09:29 ET Assigned Physician: Tierra Casillas Reviewed and Electronically Signed By: Tierra Casillas Signed Date: 12/26/2024 09:32 ET Workstation ID: [id number] Transcribed By: Self Edit Transcribed Date: 12/26/2024 09:29 ET Narrative 12/26/2024 9:32 AM EDT Bilateral screening mammogram. CLINICAL: 79 years old, Female, routine annual exam. COMPARISON: Prior studies, latest from 08/03/2023. TECHNIQUE: Bilateral MLO and CC views were obtained digitally with 2-D C views and 3-D mammogram (digital breast tomosynthesis). Computer-aided detection was utilized in evaluation of this exam (CAD). FINDINGS: There is no evidence of suspicious mass or architectural distortion. No worrisome calcifications are evident. There has been no significant change from prior exam(s). BREAST DENSITY: B - There are scattered areas of fibroglandular density. Procedure Note Tierra Casillas MD - 12/26/2024 Bilateral screening mammogram. CLINICAL: 79 years old, Female, routine annual exam. COMPARISON: Prior studies, latest from 08/03/2023. TECHNIQUE: Bilateral MLO and CC views were obtained digitally with 2-D Cviews and 3-D mammogram (digital breast tomosynthesis). Computer-aideddetection was utilized in evaluation of this exam (CAD). FINDINGS: There is no evidence of suspicious mass or architectural distortion. Noworrisome calcifications are evident. There has been no significantchange from prior exam(s). BREAST DENSITY: B - There are scattered areas of fibroglandular density. IMPRESSION: No mammographic evidence of malignancy. BI-RADS CATEGORY: 1 - NEGATIVE RECOMMENDATION: Screening bilateral mammogram is recommended in 1 year. Mammo Location: [facility], [address] [place] [address], [id number], . -------- FINAL REPORT -------- Dictated By: Tierra Casillas Dictated Date: 12/26/2024 09:29 ET Assigned Physician: Tierra Casillas Reviewed and Electronically Signed By: Tierra Casillas Signed Date: 12/26/2024 09:32 ET Workstation ID: [id number] Transcribed By: Self Edit Transcribed Date: 12/26/2024 09:29 ET us Beltran Mendoza MD IMG BI PROCEDURES Final Res ult * DXA BONE DENSITY STUDY 1+ SITS AXIAL SKEL (10/29/2021 3:36 PM EST) Anatomical Region Laterality Modality Bone Densitometr y 07/21/2021 3:18 PM EDT Narrative 10/29/2021 4:10 PM EST BONE DENSITY (DEXA) Lumbar Spine T-score is -2.1. (SD relative to 20-29 y/o adult) Z-score is 0.3. (SD relative to age matched peers) This is considered osteopenia by WHO criteria. Left Hip T-score is -1.7. Z-score is 0.3. This is considered osteopenia by WHO criteria. Lateral view of the spine demonstrates vertebral heights to be maintained. IMPRESSION: This patient is considered to have osteopenia by WHO criteria. This patient has a 16% risk of major osteoporotic fracture and a 4.0% risk of hip fracture over the next 10 years. (World Health Organization Fracture Risk Assessment) The [facility] Department of Internal Medicine recommends using National Osteoporosis Foundation (NOF) guidelines in treatment decisions related to osteoporosis. NOF guidelines suggest considering treatment for postmenopausal women and men aged 50 or older presenting with the following: History of hip or vertebral fracture. T-score = -2.5 (DXA) at the femoral neck, total hip, or spine, after appropriate evaluation to exclude secondary causes. Low bone mass (T-score between -1.0 and -2.5 at the femoral neck or spine) AND a 10-year probability of a hip fracture = 3% OR a 10-year probability of a major osteoporosis-related fracture = 20% based on the [place]-adapted WHO algorithm Please note that all treatment decisions require clinical judgment and consideration of individual patient factors, including patient preferences, co-morbidities, previous drug use, risk factors not captured in the FRAX model (e.g., frailty, falls, vitamin D deficiency, increased bone turnover, interval significant decline in bone density) and possible under- or over-estimation of fracture risk by FRAX. Optional alternative screening schedule based on иван Marin., [facility] October 07, 2011 for patients with osteopenia (based on hip BMD T-score) is as follows: * advanced osteopenia (T scores -2.00 to -2.49), BMD testing every year * moderate osteopenia (T scores -1.50 to -1.99), BMD testing every 5 years mild osteopenia or normal BMD (T scores -1.50 and higher), BMD testing every 15 years Procedure Note Juana Montero MD - 09/07/2022 BONE DENSITY (DEXA) Lumbar Spine T-score is -2.1. (SD relative to 20-29 y/o adult) Z-score is 0.3. (SD relative to age matched peers) This is considered osteopenia by WHO criteria. Left Hip T-score is -1.7. Z-score is 0.3. This is considered osteopenia by WHO criteria. Lateral view of the spine demonstrates vertebral heights to bemaintained. IMPRESSION: This patient is considered to have osteopenia by WHO criteria. Thispatient has a 16% risk of major osteoporotic fracture and a 4.0% risk of hip fracture over the next10 years. (World Health Organization Fracture Risk Assessment) The [facility] Department of Internal Medicine recommendsusing National Osteoporosis Foundation (NOF) guidelines in treatment decisions related toosteoporosis. NOF guidelines suggest considering treatment for postmenopausal women and menaged 50 or older presenting with the following: History of hip or vertebral fracture. T-score = -2.5 (DXA) at the femoral neck, total hip, or spine, afterappropriate evaluation to exclude secondary causes. Low bone mass (T-score between -1.0 and -2.5 at the femoral neck or spine)AND a 10-year probability of a hip fracture = 3% OR a 10-year probability of a majorosteoporosis-related fracture = 20% based on the [place]-adapted WHO algorithm Please note that all treatment decisions require clinical judgment andconsideration of individual patient factors, including patient preferences, co- morbidities,previous drug use, risk factors not captured in the FRAX model (e.g., frailty, falls, vitaminD deficiency, increased bone turnover, interval significant decline in bone density) andpossible under- or over-estimation of fracture risk by FRAX. Optional alternative screening schedule based on иван Marin., NEJJanuary 2011 for patients with osteopenia (based on hip BMD T-score) is as follows: * advanced osteopenia (T scores -2.00 to -2.49), BMD testing every year * moderate osteopenia (T scores -1.50 to -1.99), BMD testing every 5years mild osteopenia or normal BMD (T scores -1.50 and higher), BMD testingevery 15 years Lauren Lundberg NP IMG DXA PROCEDURES Final Resu lt from Last 3 Months or Most Recently Relevant to Health Maintenance Insurance [employer] Advance Directives * Full Code - Confirmed (Latest Code Status on File) Date Activated Date Inactivated Comments 12/05/2024 2:45 AM 12/05/2024 5:[address] atus was ascertained in the following way: Code status discussion: discussion with patient To update the patient's code status, place a code status order. Do not modify or discontinue any currently active code status orders. * Full Code - Default Date Activated Date Inactivated Comments 12/05/2024 1:57 AM 12/05/2024 2:45 AM This is orde r is used when code status has not been discussed with the patient, or code status is otherwise unknown/unconfirmed To update the patient's code status, place a code status order. Do not modify or discontinue any currently active code status orders. Care Teams Manufacturing Lab Technician Relationship Specialty Start Date End Date Beltran Mendoza MD [address] [place] [id number] PCP - General Internal Medicine 08/06/24
--- OUTSIDE RECORDS SUMMARY | 2025-06-11 18:11 | XMS_ITS | Clinical Summary ---
Author Organization [facility] Address [address] [place] [phone] Phone Care Team Providers Care Associate Director Finance Name Role Phone Kana Reynoso MD Primary Care Provider Unavaila ble Social History Tobacco Use Types Packs/Day Years Used Date Smoking Tobacco: Never Assessed Education Answer Date Recorded Are you interested in more education? Not on ivet e 01/14/2023 Are you concerned about learning? Not on file 01/14/2023 No 01/14/2023 No 01/14/2023 Digital Access Answer Date Recorded No 02/15/2023 No 02/15/2023 No 02/15/2023 Reliable internet access at home? Not on file 02/15/2023 Device with a working camera? Not on file Comments Unknown Sex and Gender Information Value Date Recorded Sex Assigned at Not on file Legal Sex Female 2:23 PM EDT Gender Identity Not on file Sexual Orientation Not on file Plan of Treatment Not on file Medical Devices Not on file Insurance [employer] RE[employer]ACEMENT [employer] RE[employer] RE[employer] Care Teams Associate Director Finance Relationship Specialty Start Date End Date Kana Reynoso MD PCP - General Internal Medicine 12/29/18 Additional Source Comments The information contained in this document represents components of the legal health record. It is not the complete legal health record.[facility]
--- OUTSIDE RECORDS SUMMARY | 2025-06-11 18:11 | XMS_ITS ---
Author Organization [facility] Care Team Providers Care Quality Control Systems Manager Name Role Phone Kenyatta Lancaster Unavailable Unavailable Allergies and adverse reactions No Known Allergies Care Team Name Role Address Phone Organization Dates Kenyatta Lancaster PCP [address] [facility] [address], [place], [address], [place] (Office): : [facility] 01/12/2024 - 02/12/2024 Immunizations Immunization Status Vaccine Details Vaccine Code CodeSystem Date Notes PCV 13 completed pneumococcal conjugate vaccine, 13 valent 133 CVX created date: 01/12/2024 administere d date: 02/11/2016 Covid-19 [id number] completed SARS-COV-2 (COVID-19) vaccine, mRNA, spike protein, LNP, preservative free, 50 mcg/0.5 mL dose 312 CVX created date: 01/12/2024 administere d date: 07/05/2023 Influenza, high dose seasonal completed Influenza, high-dose, split virus, trivalent, injectable, preservative free 135 CVX created date: 01/12/2024 administere d date: 05/30/2023 pneumococcal polysaccharide PPV23 completed pneumococcal polysaccharide vaccine, 23 valent 33 CVX created date: 01/12/2024 administere d date: 08/09/2013 Medications Section Medication Name Status Code CodeSystem Dose Route Frequency Admin Type Sig Text Start Date End Date Indication rOPINIRole HCl Oral Tablet 0.25 MG active 30077 5 RXNORM 1 table t Oral every morning and at bedtime Routin e Give 1 table t by mouth every morni ng and at bedti me for RLS 2023 - RLS Atorvastati n Calcium Oral Tablet 10 MG active 04006 2 RXNORM 1 table t Oral at bedtime Routin e Give 1 table t by mouth at bedti me for HLD 2023 - HLD MiraLax Oral Powder 17 GM/SCOOP active 57928 5 RXNORM 1 scoop Oral as needed PRN Give 1 scoop by mouth every 24 hours as neede d for CONST IPATI ON MIX WITH 8OZ OF WATER 2023 - CONSTIPATIO N Fleet Enema Enema 7-19 GM/118ML active 54959 5 RXNORM 1 dose Rectal as needed PRN Inser t 1 dose recta lly as neede d for Const ipati on (Step 3) as neede d if no bowel movem ent for 8 hours after bisac odyl suppo sitor y. 2023 - Constipatio n Milk of Magnesia Suspension 400 MG/5ML active 52630 7 RXNORM 30 ml Oral as needed PRN Give 30 ml by mouth as neede d for Const ipati on (Step 1) As neede d if no bowel movem ent for three days. (Do not use for Hemod ialys is patie nts). 2023 - Constipatio n Levothyroxi ne Sodium Oral Tablet 25 MCG active 00908 0 RXNORM 1 table t Oral one time a day Routin e Give 1 table t by mouth one time a day for HYPOT HYROI D 2023 - HYPOTHYROID Ferrous Sulfate Oral Tablet 325 (65 Fe) MG active 58046 5 RXNORM 1 table t Oral every morning and at bedtime Routin e Give 1 table t by mouth every morni ng and at bedti me for ANEMI A 2023 - ANEMIA Famotidine Oral Tablet 20 MG active 04832 3 RXNORM 1 table t Oral two times a day Routin e Give 1 table t by mouth two times a day for GERD 2023 - GERD Docusate Sodium Oral Capsule 100 MG active 54165 05 RXNORM 1 capsu le Oral every morning and at bedtime Routin e Give 1 capsu le by mouth every morni ng and at bedti me for CONST IPATI ON 2023 - CONSTIPATIO N Acetaminoph en Oral Tablet 500 MG active 0 RXNORM 2 table t Oral every 8 hours Routin e Give 2 table t by mouth every 8 hours for PAIN 2023 - PAIN DULoxetine HCl Oral Capsule Delayed Release Particles 60 MG active 00945 4 RXNORM 1 capsu le Oral one time a day Routin e Give 1 capsu le by mouth one time a day for DEPRE SSION 2023 - DEPRESSION Ascorbic Acid Oral Tablet 250 MG active 3 RXNORM 1 table t Oral every morning and at bedtime Routin e Give 1 table t by mouth every morni ng and at bedti me for SUPPL EMENT 2023 - SUPPLEMENT Fluticasone Propionate Nasal Suspension 50 MCG/ACT active 43187 07 RXNORM 2 spray Nasal one time a day Routin e 2 spray in both nostr ils one time a day for ALLER GIES 2023 - ALLERGIES Magnesium Oral Tablet 400 MG active 1 table t Oral at bedtime Routin e Give 1 table t by mouth at bedti me for SUPPL EMENT 2023 - SUPPLEMENT Acetaminoph en Tablet 325 MG active 19541 2 RXNORM 2 table t Oral as needed PRN Give 2 table t by mouth every 6 hours as neede d for Pain Pain Total dosag e for aceta minop hen and medic ation s that conta in aceta minop hen shoul d not excee d 3 grams / 24 hours . AND Give 2 table t by mouth every 6 hours as neede d for Fever great er than 100.0 F Total dosag e for aceta minop hen and medic ation s that conta in aceta minop hen shoul d not excee d 3 grams / 24 hours . 2023 - Pain 59395 2 RXNORM 2 table t Oral as needed PRN Give 2 table t by mouth every 6 hours as neede d for Pain Pain Total dosag e for aceta minop hen and medic ation s that conta in aceta minop hen shoul d not excee d 3 grams / 24 hours . AND Give 2 table t by mouth every 6 hours as neede d for Fever great er than 100.0 F Total dosag e for aceta minop hen and medic ation s that conta in aceta minop hen shoul d not excee d 3 grams / 24 hours . 2023 - Fever greater than 100.0F Bisacodyl Suppository 10 MG active 9 RXNORM 1 suppo sitor y Rectal as needed PRN Inser t 1 suppo sitor y recta lly as neede d for If no bowel movem ent for 8 hours after Milk of Magne jerry 2023 - If no bowel movement for 8 hours after Milk of Magnesia Mirtazapine Oral Tablet 15 MG active 43830 5 RXNORM 1 table t Oral at bedtime Routin e Give 1 table t by mouth at bedti me for DEPRE SSION 2023 - DEPRESSION Senna Oral Tablet 8.6 MG active 2 table t Oral at bedtime Routin e Give 2 table t by mouth at bedti me for CONST IPATI ON 2023 - CONSTIPATIO N Gabapentin Oral Capsule 300 MG active 00797 1 RXNORM 1 capsu le Oral two times a day Routin e Give 1 capsu le by mouth two times a day for neuro etta 2023 - neuropathy Mental Status Section Date Assessment Total Score Description 02/12/2024 BIMS 15 cognitively int act CAM 0 No delirium ind icated PHQ-9 00 01/17/2024 BIMS 14 cognitively int act CAM 0 No delirium ind icated PHQ-9 00 Problems Problem # Description Date of onset Resolved Date Code CodeSystem Concern Status 1 DEPRESSION, UNSPECIFIED 01/18/[address] active 2 FECAL IMPACTION 01/18/[address] ac tive 3 GASTRO-ESOPHAGEAL REFLUX DISEASE WITHOUT ESOPHAGITIS 01/18/[address] active 4 HYPERLIPIDEMIA, UNSPECIFIED 01/18/[address] active 5 HYPOTHYROIDISM, UNSPECIFIED 01/18/[address] active 6 INSOMNIA, UNSPECIFIED 01/18/[address] active 7 MALIGNANT NEOPLASM OF COLON, UNSPECIFIED 01/18/[address] active 8 RESTLESS LEGS SYNDROME 01/18/[address] active 9 DISPLACED TRIMALLEOLAR FRACTURE OF LEFT LOWER LEG, SUBSEQUENT ENCOUNTER FOR CLOSED FRACTURE WITH ROUTINE HEALING 01/12/[address] active 10 ESSENTIAL (PRIMARY) HYPERTENSION 01/12/[address] active 11 MUSCLE WEAKNESS (GENERALIZED) 01/12/[address] active 12 OTHER ABNORMALITIES OF GAIT AND MOBILITY 01/12/[address] active 13 OTHER LACK OF COORDINATION 01/12/[address] active 14 OTHER REDUCED MOBILITY 01/12/[address] active Reason for Referral No Reasons for Referral Entered Social History Social History Observation Description Start Date End Date Code Code System Current Smoking Status Tobacco smoking consumption unknown 678738727 SNOMED CT Sex Assigned At Female 1945 49078-5 [facility] Gender Identity Sexual Orientation Vital Signs Code Code System Vitals Name Values and Units Timing Information 77011-5 [facility] Pain Level Value=0.0 02/12/2024 9279-1 [facility] Respiratory Rate Value=18.0 Units=/m in 02/02/2024 8462-4 [facility] Blood Pressure-Diastolic Value=89 Un its=mmHg 02/02/2024 8480-6 [facility] Blood Pressure-Systolic Nabjb=417 Un its=mmHg 02/02/2024 8310-5 [facility] Body Temperature Value=98.9 Units= F 02/02/2024 8867-4 [facility] Heart rate Value=67.0 Units=/min 96768-8 [facility] O2 % BldC Oximetry Value=96.0 Units= % 02/02/2024 83828-0 [facility] Weight Jpmsd=288.8 Units=Lbs 06/2024 8302-2 [facility] Height Value=65.0 Units=Inches 01/12/2024
--- OUTSIDE RECORDS SUMMARY | 2025-06-11 18:11 | XMS_ITS ---
Author Organization [facility] Address [address] [place] [address] Phone Care Team Providers Care Tool Keeper Name Role Phone Beltran Mendoza MD Primary Care Provider [phone] Active Problems Problem Noted Date Diagnosed Date [...] 12/05/2024 Anemia in neoplastic disease 06/13/2024 Thrombocytopenia ([facility] V24) 06/13/2024 Thoracic aortic aneurysm without rupture ([facility]/ C V24) 08/21/2021 Overview (06/13/2024): Evaluated by [facility] Cardiac Surgery 11/11/21 4.2 cm ascending aortic aneurysm Advised repeat in 6 months and if stable 1 year Hyponatremia 05/22/2021 Parkinson's disease ([facility] V24, [facility] V28) 0 05/22/2021 Weight loss 11/10/2020 Colitis 06/19/2019 Neuropathy due to chemotherapeutic drug ([facility] V24) 02/23/2018 Rash, skin 09/07/2017 Chronic constipation 08/24/2017 Gastroesophageal reflux disease 08/24/2017 Anxiety 03/08/2017 Essential hypertension 03/08/2017 Malignant neoplasm of ascend ing colon ([facility] V24, [facility] V28) 08/06/2016 Current Oncology Plans No current plan information found. Past Plans No past plan information found. Radiation Treatments * No radiation treatments are documented for this patient in [facility]. Treatments may have been administered in another system. Lifetime Dose Tracking * Chemical Lifetime Dose Automatic Entry Manual Entr y CTDIvol 10.18 mGy 10.18 mGy 0 mGy Resolved Problems Problem Noted Date Diagnosed Date Resolved Date Primary cancer of left lower lobe of lung (CMS/HCC V24, CMS/HCC V28) 06/13/2024 02/15/2025
--- OUTSIDE RECORDS SUMMARY | 2025-06-11 18:11 | XMS_ITS | Encounter Summary ---
Author Organization [facility] Address [address] [address] Phone Care Team Providers Care Cigar Patcher Name Role Phone Kana Reynoso MD Primary Care Provider Unavaila ble Encounter Details Date Type Department Care Team (Late st Contact Info) Description 02/14/2019 Ancillary Orders [facility] [address] [place] [address] [place] [address] Antonella Mcgee MD [address] [place] [id number] Bradycardia; Dizziness Social History Tobacco Use Types Packs/Day Years Used Date Smoking Tobacco: Never Assessed Comments Unknown Sex and Gender Information Value Date Recorded Sex Assigned at Not on file Legal Sex Female 2:23 PM EDT Gender Identity Not on file Sexual Orientation Not on file documented as of this encounter Plan of Treatment Not on file documented as of this encounter Results * Holter Monitor 24 Hours (02/14/2019 11:16 AM EDT) Anatomical Region Laterality Modality Heart Other Narrative 02/14/2019 12:50 PM EDT 24-hour monitor: Baseline rhythm is sinus rhythm minimum heart average 60 bpm. No PVCs present. Occasional atrial ectopy, less than 200 PACs during the 24 hours, mainly isolated PACs, with a single 7 beat run of atrial tachycardia. No long pauses present. There is no diary returned. There are no patient event markers. Impression: Normal 24-hour monitor. No symptoms reported. Procedure Note Colby Clemens MD - 02/14/2019 24-hour monitor: Baseline rhythm is sinus rhythm minimum heart average 60bpm. No PVCs present. Occasional atrial ectopy, less than 200 PACsduring the 24 hours, mainly isolated PACs, with a single 7 beat run ofatrial tachycardia. No long pauses present. There is no diary returned.There are no patient event markers. Impression: Normal 24-hour monitor. No symptoms reported. Antonella Mcgee MD [facility] ORDERABLES Final Result documented in this encounter Visit Diagnoses Diagnosis Bradycardia Other specified cardiac dysrhythmias Dizziness Dizziness and giddiness Bradycardia Other specified cardiac dysrhythmias Dizziness Dizziness and giddiness documented in this encounter Care Teams Cigar Patcher Relationship Specialty Start Date End Date Kana Reynoso MD PCP - General Internal Medicine 12/29/18 documented as of this encounter Additional Source Comments The information contained in this document represents components of the legal health record. It is not the complete legal health record.[facility]
--- OUTSIDE RECORDS SUMMARY | 2025-06-11 18:11 | XMS_ITS | Encounter Summary ---
Author Organization [facility] Address [address] [place] [address] Care Team Providers Care Oracle E Business Developer Name Role Phone Beltran Mendoza MD Primary Care Provider [phone] Reason for Visit * Reason Onset Date Comments Results 05/11/2025 Encounter Details Date Type Department Care Team (Late st Contact Info) Description 05/11/2025 Telephone Walk-In Clinic - [address] [phone] José Santillan Social History Tobacco Use Types Packs/Day Years Used Date Smoking Tobacco: Never Passive Smoke Exposure: Never Smokeless Tobacco: Never Alcohol Use Standard [...] not to disclose 2024 1:22 AM EDT documented as of this encounter Progress Notes * JESUSITA Marshall - 05/11/2025 1:11 PM EDT Urine test and culture negative for infection. Please notify patient * José Santillan - 05/11/2025 11:56 AM EDT Patient would like to know the results form her testing the other day. Can someone please call her back at [phone] . Thank you. documented in this encounter Plan of Treatment Upcoming Encounters Date Type Department Care Team (Late st Contact Info) Description 06/25/2025 11:30 AM EDT Office Visit [facility] Hematology Oncology [address] [place] [phone] Rianna Horvath MD [address] [place] [phone] 06/27/2025 2:30 PM EDT Office Visit Pulmonology - [address] [phone] Yoanna Kumar MD [address] [address] 07/12/2025 12:00 PM EDT Appointment [facility] Endoscopy [address] [place] [phone] Todd Malcolm DO [address] [address] 10/24/2025 4:30 PM EST Office Visit Adult Medicine [address] [phone] Beltran Mendoza MD [address] [place] [address] 12/31/2025 4:20 PM EDT Appointment Radiology Department - [address] [phone] 04/25/2026 2:00 PM EDT Office Visit Adult Medicine [address] [place] [place] [phone] Beltran Mendoza MD [address] [place] [address] documented as of this encounter Visit Diagnoses Not on filedocumented in this encounter Additional Health Concerns Assessment Noted Time PHQ-9 Depression Total Score: 6 04/23/20 25 2:11 PM EDT documented as of this encounter Care Teams Oracle E Business Developer Relationship Specialty Start Date End Date Beltran Mendoza MD [address] [place] [address] PCP - General Internal Medicine 08/06/24 documented as of this encounter
== END 2025-06-11 15:36 | disposition home or self-care (01) ==
LOC: HO.HSM 15:14
PROVIDERS: PCP Internal Medicine; Visit Provider Psychiatry & Neurology Neurology
DX: G23.1 Progressive supranuclear ophthalmoplegia [Steele-Richardson-Olszewski] (principal); R26.89 Other abnormalities of gait and mobility; G62.9 Polyneuropathy, unspecified; G24.5 Blepharospasm; G20.A1 Parkinson's disease without dyskinesia, without mention of fluctuations; F02.A4 Dementia in other diseases classified elsewhere, mild, with anxiety
CPT/HCPCS: 99214